=== PATIENT | male | born 1950 | race Caucasian/White ===

== ENCOUNTER 2016-07-08 09:14 | Outpatient (CLI) | payer MEDICARE | END 2016-07-08 09:15 | disposition home or self-care (01) | DX: Z00.00 Encounter for general adult medical examination without abnormal findings (principal); R73.01 Impaired fasting glucose; E66.9 Obesity, unspecified; I10 Essential (primary) hypertension ==

== ENCOUNTER 2017-02-24 09:55 | Outpatient (CLI) | payer MEDICARE | END 2017-02-24 09:56 | disposition critical access hospital (66) | LOC: EMS 09:55 | PROVIDERS: ATTEND Surgery | DX: R41.0 Disorientation, unspecified (principal) | CPT/HCPCS: A0425; A0429 ==

== ENCOUNTER 2017-02-24 10:23 | Inpatient (IN) | payer MEDICARE ==
[2017-02-24] MEDS ORDERED: SODIUM CHLORIDE 0.9% 1,000 ML IV ONE ×3 (10:50→12:50)
[2017-02-24 11:11] LABS: VBG BASE EXCESS -9.2 mmol/L (-2 - +2); VBG PH 7.265 (7.31-7.41)
[2017-02-24 11:13] LABS: NEUTROPHILS # (AUTO) 13.4 10^3/uL (1.5-6.6)
[2017-02-24 11:17] LABS: BASOPHILS # (AUTO) 0.1 10^3/uL (0.0-0.1); BASOPHILS % (AUTO) 0.3 %; EOSINOPHILS % (AUTO) 0.3 %; HCT - HEMATOCRIT 61.3 % (42.0-52.0); HGB - HEMOGLOBIN 19.1 g/dL (14.0-18.0); LYMPHOCYTES # (AUTO) 1.2 10^3/uL (1.5-3.5); LYMPHOCYTES % (AUTO) 7.6 %; MEAN CORPUSCULAR HEMOGLOBIN 30.5 pg (27.0-31.0); MEAN CORPUSCULAR HGB CONC 31.2 g/dL (32.0-36.0); MEAN CORPUSCULAR VOLUME 97.9 fL (80.0-94.0); MEAN PLATELET VOLUME 8.3 fL (7.4-11.4); MONOCYTES # (AUTO) 0.9 10^3/uL (0.0-1.0); MONOCYTES % (AUTO) 5.7 %; NEUTROPHILS % (AUTO) 86.1 %; RED BLOOD COUNT 6.26 10^6/uL (4.70-6.10); RED CELL DISTRIBUTION WIDTH 15.1 % (12.0-15.0); UNCORRECTED WHITE BLOOD COUNT 15.6 x10^3/uL; WHITE BLOOD COUNT 15.6 x10^3/uL (4.8-10.8)
[2017-02-24 11:20] LABS: INR 1.1 (0.8-1.2); PT - PROTHROMBIN TIME 12.6 secs (9.9-12.6)
[2017-02-24 11:27] LABS: PARTIAL THROMBOPLASTIN TIME 22.1 secs (24.9-33.3)
[2017-02-24 11:28] LABS: BILIRUBIN,URINE NEGATIVE (NEGATIVE)
[2017-02-24 11:29] LABS: UA w/ MICROSCOPIC CHARGE YES
[2017-02-24 11:35] LABS: UR CULTURE IF IND NOT INDICATED; WBC,URINE 0-3 /HPF (0-3)
[2017-02-24] MEDS ORDERED: IOPAMIDOL-300 100 ML VIAL ONE (11:47)
--- NOTE | 2017-02-24 12:18 | XRAY Preliminary Report ---
Exam: XR CHEST 1 VIEW IMPRESSION: Volume loss with small atelectasis in the left base. [facility] SITE ID: [id number]
--- NOTE | 2017-02-24 12:20 | XRAY Report ---
EXAM: CHEST RADIOGRAPHY EXAM DATE: 02/24/2017 11:45 AM. CLINICAL HISTORY: Altered mental status COMPARISON: None. TECHNIQUE: 1 view. FINDINGS: Lungs/Pleura: Some mild volume loss in the left base with some atelectasis. Otherwise lungs are clear . No effusions or pneumothoraces. Mediastinum: Within exam limitations, the cardiomediastinal contour is normal. Other: None. IMPRESSION: Volume loss with small atelectasis in the left base. [facility] Referring Provider Line: [phone] SITE ID: [id number]
[2017-02-24] MEDS ORDERED: INSULIN REGULAR HUMAN 100 UNIT in SODIUM CHLORIDE 0.9% 100ML 99 ML IV STA (12:28)
[2017-02-24 12:46] LABS: ALBUMIN/GLOBULIN RATIO 1.2 (1.0-2.2); BILIRUBIN,TOTAL 1.4 mg/dL (0.2-1.0); CALCIUM 10.5 mg/dL (8.5-10.3); CARBON DIOXIDE - CO2 16 mmol/L (21-32); CHLORIDE 96 mmol/L (101-111); CREATININE 3.2 mg/dL (0.6-1.2); GFR - MDRD 19 (>89); LIPASE 66 U/L (22-51); PHOSPHORUS 7.9 mg/dL (2.5-4.6); SODIUM 142 mmol/L (135-145); TOTAL PROTEIN 8.6 g/dL (6.7-8.2)
[2017-02-24 12:47] LABS: GLUCOSE 1220 mg/dL (70-100); POTASSIUM 6.4 mmol/L (3.5-5.0)
[2017-02-24 12:48] LABS: BUN - BLOOD UREA NITROGEN 89 mg/dL (6-20)
--- NOTE | 2017-02-24 12:54 | ED Physician Documentation ---
History of Present Illness - Stated complaint Stated Complaint: HIGH BLOOD SUGAR - Chief complaint Chief Complaint: Neuro - History obtained from History obtained from: Family ( states that last friday the pt started drinking an excessive amount of fluids (milk, water and juice) states no ETOH. she states that he started to then urinate "a bunch". this AM she states that he bacame weak and altered. She called EMS who reports that the BGL was "too high" to read. No hx of DM. Pt denies any symptoms.) Review of Systems Unable to obtain: Confused, Other (ROS provided somewhat from .) Ten Systems: 10 systems reviewed and negative Constitutional: reports: Fatigue. denies: Fever, Chills Eyes: denies: Loss of vision, Discharge Nose: denies: Congestion Throat: denies: Sore throat Cardiac: denies: Chest pain / pressure, Palpitations, Pedal edema Respiratory: denies: Dyspnea, Cough, Hemoptysis, Wheezing GI: denies: Abdominal Pain, Nausea, Vomiting, Constipation, Diarrhea : reports: Frequency. denies: Hesitancy, Unable to Void, Incontinent, Hematuria Skin: denies: Rash, Lesions Musculoskeletal: denies: Back pain, Extremity pain, Joint pain Neurologic: reports: Generalized weakness, Altered mental status. denies: Focal weakness, Difficulty speaking, Syncope, Seizure, Headache, Head injury, LOC PD PAST MEDICAL HISTORY - Past Medical History Cardiovascular: Hypertension, High cholesterol - Past Surgical History Other past surgical history: ORIF right arm - Present Medications Home Medications: Ambulatory Orders Medication Instructions Recorded Confirmed Pravastatin [Pravachol] 40 mg PO QPM 02/24/17 02/24/17 - Allergies Allergies/Adverse Reactions: Allergies Allergy/AdvReac Type Severity Reaction Status Date / Time No Known Drug Allergies Allergy Verified 02/24/17 10:32 - Living Situation Living Situation: reports: With spouse/s.o. - Social History Does the pt smoke?: No Smoking Status: Former smoker ETOH Use: Beer - Family History Family history: reports: Non contributory - POLST Patient has POLST: No PD ED PE NORMAL - Vitals Vital signs reviewed: Yes - General General: Other (mild distress) - HEENT HEENT: Pharynx benign. No: Moist mucous membranes - Neck Neck: No JVD - Cardiac Cardiac: No murmur. No: RRR (tachycardic but regular) - Respiratory Respiratory: No: No respiratory distress - Abdomen Abdomen: Soft, Other (diffuse tender abd exam. has umbilical hernia that states is not new) - Derm Derm: Normal color, No rash - Extremities Extremities: No edema - Neuro Neuro: Other (pt does know is name, does not know location or situation or year. will follow commands. has no specific weakness ) Eye Opening: Spontaneous Motor: Obeys Commands Verbal: Confused GCS Score: 14 - Psych Psych: Normal affect Results - Vitals Vitals: Vital Signs - 24 hr 02/24/17 02/24/17 02/24/17 10:23 11:30 13:34 Temperature 35.3 C L 35.8 C L Heart Rate 53 L 104 H 107 H Respiratory 18 18 22 Rate Blood Pressure 110/96 H 126/70 126/87 H O2 Saturation 87 L 95 97 Oxygen O2 Source Nasal cannula - EKG (time done) 1116 Rate: Rate (enter#) Rhythm: Sinus tachycardia Rico: Normal Intervals: Normal RI, QRS normal. No: Prolonged QT QRS: Normal Ischemia: Normal ST segments - Labs Labs: Laboratory Tests 02/24/17 02/24/17 02/24/17 10:45 10:45 10:45 WBC 15.6 H RBC 6.26 H Hgb 19.1 H Hct 61.3 H MCV 97.9 H MCH 30.5 MCHC 31.2 L RDW 15.1 H Plt Count 262 MPV 8.3 Neut # 13.4 H Lymph # 1.2 L Faulkner # 0.9 Eos # 0.0 Baso # 0.1 Absolute Nucleated RBC 0.00 Nucleated RBC % 0.0 PT INR APTT VBG pH VBG pCO2 VBG pO2 VBG HCO3 VBG Total CO2 VBG O2 Saturation VBG Base Excess Sodium 142 Potassium 6.4 H* Chloride 96 L Carbon Dioxide 16 L Anion Gap 30.0 H BUN 89 H* Creatinine 3.2 H Estimated GFR (MDRD) 19 L Glucose 1220 H* Lactic Acid Calcium 10.5 H Phosphorus 7.9 H Magnesium 4.0 H Total Bilirubin 1.4 H AST 128 H ALT 111 H Alkaline Phosphatase 122 H Total Creatine Kinase 4924 H* Troponin I 0.05 Total Protein 8.6 H Albumin 4.7 Globulin 3.9 Albumin/Globulin Ratio 1.2 Lipase 66 H Urine Color Urine Clarity Urine pH Ur Specific Harrington Urine Protein Urine Glucose (UA) Urine Ketones Urine Occult Blood Urine Nitrite Urine Bilirubin Urine Urobilinogen Ur Leukocyte Esterase Urine RBC Urine WBC Ur Squamous Epith Cells Urine Bacteria Ur Microscopic Review Urine Culture Comments Serum Ketones SMALL H 02/24/17 02/24/17 02/24/17 10:45 10:45 11:10 WBC RBC Hgb Hct MCV MCH MCHC RDW Plt Count MPV Neut # Lymph # Faulkner # Eos # Baso # Absolute Nucleated RBC Nucleated RBC % PT 12.6 INR 1.1 APTT 22.1 L VBG pH 7.265 L VBG pCO2 38.0 L VBG pO2 49.5 H VBG HCO3 16.9 L VBG Total CO2 18.0 L VBG O2 Saturation 82.0 H VBG Base Excess -9.2 L Sodium Potassium Chloride Carbon Dioxide Anion Gap BUN Creatinine Estimated GFR (MDRD) Glucose Lactic Acid Calcium Phosphorus Magnesium Total Bilirubin AST ALT Alkaline Phosphatase Total Creatine Kinase Troponin I Total Protein Albumin Globulin Albumin/Globulin Ratio Lipase Urine Color YELLOW Urine Clarity CLEAR Urine pH 6.0 Ur Specific Harrington 1.010 Urine Protein NEGATIVE Urine Glucose (UA) >=1000 H Urine Ketones TRACE Urine Occult Blood LARGE H Urine Nitrite NEGATIVE Urine Bilirubin NEGATIVE Urine Urobilinogen 0.2 (NORMAL) Ur Leukocyte Esterase NEGATIVE Urine RBC 0-5 Urine WBC 0-3 Ur Squamous Epith Cells RARE Squamous Urine Bacteria Rare Ur Microscopic Review INDICATED Urine Culture Comments NOT INDICATED Serum Ketones 02/24/17 11:16 WBC RBC Hgb Hct MCV MCH MCHC RDW Plt Count MPV Neut # Lymph # Faulkner # Eos # Baso # Absolute Nucleated RBC Nucleated RBC % PT INR APTT VBG pH VBG pCO2 VBG pO2 VBG HCO3 VBG Total CO2 VBG O2 Saturation VBG Base Excess Sodium Potassium Chloride Carbon Dioxide Anion Gap BUN Creatinine Estimated GFR (MDRD) Glucose Lactic Acid 3.9 H* Calcium Phosphorus Magnesium Total Bilirubin AST ALT Alkaline Phosphatase Total Creatine Kinase Troponin I Total Protein Albumin Globulin Albumin/Globulin Ratio Lipase Urine Color Urine Clarity Urine pH Ur Specific [place] Urine Protein Urine Glucose (UA) Urine Ketones Urine Occult Blood Urine Nitrite Urine Bilirubin Urine Urobilinogen Ur Leukocyte Esterase Urine RBC Urine WBC Ur Squamous Epith Cells Urine Bacteria Ur Microscopic Review Urine Culture Comments Serum Ketones - Rads (name of study) CXR Radiology: Final report received Head CT Radiology: Final report received ABD pelvis Radiology: Final report received (1. Study limited by patient motion. 2.6.4 cm indeterminate cystic lesion superior pole right kidney. 3. Colonic diverticulosis. 4. 4 x 6 cm non-entrapped fat-filled umbilical hernia. 5. Linear stranding surrounding the pancreatic tail. Differential is between early mild pancreatitis versus residual from prior episode of pancreatitis. . Normal appendix.7. 4.4 cm infrarenal abdominal aortic aneurysm. ) PD MEDICAL DECISION MAKING - ED course Complexity details: d/w patient ED course: Pt in DKA and dehydrated. anion gap of 30 with acidosis. Potassium elevated. Started in insulin. ABX ordered to cover any sepsis, Has slightly elevated trop but ECG does not show STEMI. CT abd/pelivs positive only for possible pancreatitis but Lipase only in the 60's. unsure of the etiology of his DKA. ASA ordered for his elevated trop. Discussed case with Dr Null (internal medicine ) who will admit. - Critical Care Time(min): 70 Time Includes: Direct patient care, Reassess patient, Document care, Coordinate care, Medical consult, See progress note Data interpretation: Labs, ABG, CXR, See progress note Procedures included in critical care time: See progress note Procedures excluded from critical care time: See progress note Departure - Departure Disposition: 66 [facility] DC/Xfer Clinical Impression: DKA (diabetic ketoacidoses), Dehydration, Hyperkalemia, Altered mental status
[2017-02-24] MEDS ORDERED: VANCOMYCIN INJ 1 GM in SODIUM CHLORIDE 0.9% 250 ML IV STA (13:04)
[2017-02-24] MEDS ORDERED: PIPERACILLIN/TAZOBACTAM 3.375 GM in SODIUM CHLORIDE 0.9% MINIBAG 100 ML IV STA (13:04)
--- NOTE | 2017-02-24 13:35 | CT Preliminary Report ---
Exam: CT HEAD W/O IMPRESSION: Generalized age-related cortical atrophic changes without evidence of acute intracranial abnormality. [facility] SITE ID: [id number]
--- NOTE | 2017-02-24 13:52 | CT Preliminary Report ---
Exam: CT ABDOMEN/PELVIS W/O IMPRESSION: 1. Study limited by patient motion. 2. 6.4 cm indeterminate cystic lesion superior pole right kidney. 3. Colonic diverticulosis. 4. 4 x 6 cm non-entrapped fat filled umbilical hernia. 5. Linear stranding surrounding the pancreatic tail. Differential is between early mild pancreatitis versus residual from prior episode of pancreatitis. 6. Normal appendix. 7. 4.4 cm infrarenal abdominal aortic aneurysm. [facility] SITE ID: [id number]
--- NOTE | 2017-02-24 13:55 | CT Report ---
EXAM: CT HEAD EXAM DATE: 02/24/2017 01:07 PM. CLINICAL HISTORY: Altered mental status. Unconscious. Abdominal pain with an umbilical hernia. COMPARISON: None. TECHNIQUE: Multiaxial CT images were obtained from the foramen magnum to the vertex. Reformats: Coron al. IV contrast: None. In accordance with CT protocol optimization, one or more of the following dose reduction techniques w ere utilized for this exam: automated exposure control, adjustment of mA and/or KV based on patient s ize, or use of iterative reconstructive technique. FINDINGS: Parenchyma: No intraparenchymal hemorrhage. No evidence of mass, midline shift, or CT findings of acu te infarction. Bergman-white differentiation is distinct. Diffuse chronic microangiopathic white matter changes are evident. Extraaxial Spaces: Normal for age. No subdural or epidural collections identified. Ventricles: The ventricles and cortical sulci are enlarged, consistent with age-related tissue loss. Sinuses and orbits: Imaged paranasal sinuses, orbits, and mastoids show no significant abnormality. Bones: No evidence of fracture or calvarial defect. Other: None. IMPRESSION: Generalized age-related cortical atrophic changes without evidence of acute intracranial abnormality. [facility] Referring Provider Line: [phone] SITE ID: [id number]
--- NOTE | 2017-02-24 13:58 | CT Report ---
EXAM: CT ABDOMEN AND PELVIS EXAM DATE: 02/24/2017 01:25 PM. CLINICAL HISTORY: Abdominal pain with umbilical hernia. Patient is unconscious. COMPARISONS: None. TECHNIQUE: Routine helical CT imaging was performed through the abdomen and pelvis. IV contrast: None . Enteric contrast: No. Reconstructions: Coronal and sagittal. In accordance with CT protocol optimization, one or more of the following dose reduction techniques w ere utilized for this exam: automated exposure control, adjustment of mA and/or KV based on patient s ize, or use of iterative reconstructive technique. FINDINGS: Study compromised by this gentleman's inability to hold his breath such that there is respiratory mot ion throughout the exam. Lung Bases: Unremarkable. Liver: Fatty liver. Grossly negative. Gallbladder/Bile Ducts: Several tiny gallstones. No biliary duct dilatation. Gallbladder is of normal caliber. Spleen: Normal. Pancreas: Small amount of linear stranding surrounding the pancreatic tail. Pancreas otherwise unrema rkable. Adrenal Glands: Normal. Kidneys: Normal left kidney. 6.4 cm indeterminate lesion superior pole right kidney. Breathing artifact precludes adequate measure ment of internal density. Peritoneal Cavity/Bowel: Diverticuli off the colon. 6 x 4 cm fat-filled non-entrapped umbilical hernia. No free fluid, free air or adenopathy. No masses or acute inflammatory process. The appendix is well visualized and normal. Pelvic Organs: Normal. The bladder and visualized pelvic organs are within normal limits. Vasculature: 4.4 cm infrarenal abdominal aortic aneurysm over a 4 cm segment. Bones: Scoliosis. Other: None. IMPRESSION: 1. Study limited by patient motion. 2.6.4 cm indeterminate cystic lesion superior pole right kidney. 3. Colonic diverticulosis. 4. 4 x 6 cm non-entrapped fat-filled umbilical hernia. 5. Linear stranding surrounding the pancreatic tail. Differential is between early mild pancreatitis versus residual from prior episode of pancreatitis. 6. Normal appendix. 7. 4.4 cm infrarenal abdominal aortic aneurysm. [facility] Referring Provider Line: [phone] SITE ID: [id number]
[2017-02-24] MEDS ORDERED: ASPIRIN CHEW 81 MG TABLET PO STA (14:16)
[2017-02-24] MEDS ORDERED: VANCOMYCIN 1 GM VIAL ONE (14:18)
[2017-02-24] MEDS ORDERED: PROCHLORPERAZINE 10 MG/2 ML VIAL IVP PRN (14:41)
[2017-02-24] MEDS ORDERED: ACETAMINOPHEN 325 MG TABLET PO PRN (14:41)
[2017-02-24] MEDS ORDERED: SODIUM CHLORIDE FLUSH 0.9% 10 ML SYRINGE IVP PRN (14:41)
[2017-02-24] MEDS ORDERED: HYDROcod/ACETAM 10 MG/325 MG TABLET PO PRN (14:41)
[2017-02-24] MEDS ORDERED: ASPIRIN CHEW 81 MG TABLET ONE (14:45)
[2017-02-24 15:01] LABS: CALCIUM 9.2 mg/dL (8.5-10.3); CREATININE 3.1 mg/dL (0.6-1.2)
[2017-02-24 15:37] LABS: HEMOGLOBIN A1C 2.71 g/dL
[2017-02-24 16:22] LABS: CALCIUM 9.6 mg/dL (8.5-10.3); CREATININE 3.1 mg/dL (0.6-1.2); POTASSIUM 4.9 mmol/L (3.5-5.0)
[2017-02-24 17:22] LABS: VBG BASE EXCESS -7.3 mmol/L (-2 - +2); VBG OXYGEN SATURATION 81.4 % (60-80); VBG PH 7.285 (7.31-7.41); VBG TOTAL CO2 20.1 mmol/L (24-29)
[2017-02-24 17:29] LABS: BUN - BLOOD UREA NITROGEN 87 mg/dL (6-20); CALCIUM 9.8 mg/dL (8.5-10.3); CARBON DIOXIDE - CO2 18 mmol/L (21-32); CHLORIDE 110 mmol/L (101-111); CREATININE 3.1 mg/dL (0.6-1.2); GFR - MDRD 20 (>89); GLUCOSE 827 mg/dL (70-100); MAGNESIUM 3.7 mg/dL (1.7-2.8); SODIUM 147 mmol/L (135-145)
--- NOTE | 2017-02-24 18:23 | HISTORY & PHYSICAL EXAMINATION ---
Chief Complaint - Chief Complaint Chief Complaint: Altered mental status, brought in by . <Yessica Reid - Last Filed: 02/27/17 18:01> History of Present Illness <Bhavani Cottrell - Last Filed: 02/27/17 10:31> - Admitted From Admitted From:: ED - History Obtained From Records Reviewed: Yes History obtained from: Pt and ED MD Exam Limitations: Pt somnolent and doses off to sleep during speaking <Yessica Reid - Last Filed: 02/27/17 18:01> - History of Present Illness HPI Comment/Other: This is a 67-year-old white male with a history of hypertension and hyperlipidemia only on a cholesterol medication. Patient presented with a 5 day history of weakness, lethargy, poor p.o. intake, thirst and finally significant altered mental status. The could not awaken him today and she brought him to the emergency room. He was found to be in DKA and a diabetic coma. Insulin and fluids and empiric antibiotics were begun in the ED. He is being transferred to the ICU for management of DKA and new onset of diabetes. (Yessica Reid) History - Past Medical History Cardiovascular: reports: Hypertension, High cholesterol Respiratory: reports: None Neuro: reports: None Endocrine/Autoimmune: reports: None GI: reports: None : reports: None HEENT: reports: Chronic vision loss Psych: reports: None Musculoskeletal: reports: Chronic back pain Derm: reports: None - Past Surgical History Other past surgical history: ORIF right arm - Family & Social History Living Situation: With spouse/s.o. - POLST Patient has POLST: No <Yessica Reid - Last Filed: 02/27/17 18:01> Meds/Allgy <Bhavani Cottrell - Last Filed: 02/27/17 10:31> <Yessica Reid - Last Filed: 02/27/17 18:01> - Home Medications Home Medications: Ambulatory Orders Medication Instructions Recorded Confirmed Pravastatin [Pravachol] 40 mg PO QPM 02/24/17 02/24/17 - Allergies Allergies/Adverse Reactions: Allergies Allergy/AdvReac Type Severity Reaction Status Date / Time No Known Drug Allergies Allergy Verified 02/24/17 10:32 Review of Systems - Constitutional Constitutional: reports: Fatigue, Weakness, Other (Thirst) - Gastrointestinal Gastrointestinal: reports: Abdominal pain <Yessica Reid - Last Filed: 02/27/17 18:01> Exam - Vital Signs Reviewed Vital Signs: Yes - Physical Exam General Appearance: positive: Lethargic, Other (Awakens to name.) Eyes Bilateral: positive: No scleral icterus ENT: positive: ENT inspection nml Neck: positive: No JVD Respiratory: positive: No respiratory distress, Other (R base rales.) Cardiovascular: positive: Regular rate & rhythm, No murmur Peripheral Pulses: positive: 1+ Abdomen: positive: No distention, Tenderness, Other (Decreased bowel sounds) Skin: positive: Color nml Extremities: positive: No pedal edema Neurologic/Psychiatric: positive: Weakness, Other (Lethargic, awakens and answers briefly) <Yessica Reid - Last Filed: 02/27/17 18:01> - Vital Signs Vital Signs: Vital Signs x48h Temp Pulse Resp BP Pulse Ox 02/27/17 07:27 37.5 C 87 18 106/68 94 Conclusion/Plan - Problem List (2) Uncontrolled type 2 diabetes mellitus QualifierTitle: Diabetes mellitus complication status: with oral complications - Lab Results Fish Bones: 02/25/17 03:10 02/27/17 05:46 <Bhavani Cottrell - Last Filed: 02/27/17 10:31> - Problem List (1) DKA (diabetic ketoacidoses) Conclusion/Plan: Altered mental status is likely due to DKA. Place the Pt in ICU. Start iv fluids at rapid rate. Start iv Insulin per DKA protocol with frequent monitoring of glu, anion gap and electrolytes. (2) Dehydration Conclusion/Plan: Pt seem clinically dry His BUN/creat and very hemoconcentrated Hgb/Hct suggest longstanding volume depletion causing significant prerenal azotemia. Plan iv hydration with crystalloids. (3) Hyperkalemia Conclusion/Plan: Likely secondary to hyperglycemia and ARF. As glucose drops, K should decrease, with Insulin drip. Continue iv hydration with saline. Follow labs and if needed, Kayexelate would be ordered. (4) Rhabdomyolysis Conclusion/Plan: Significant elevation of CPK without Troponin elevation suggests rhabdomyolysis. CPK elevation could be partly due to renal failure as well. I asked Pt of he had any trauma or injury, as he awoke briefly, and he answered "No". His family did report poor po intake as he became lethargic, therefore the time course of these elevated values is not yet known. Continue iv fluids at rapid rate for clearing CPK as well as for DKA treatment. (5) Abdominal pain Conclusion/Plan: Abnormal CT abdomen suggests pancreatic pathology which may be cause of abdominal pain, and cause of DKA as well as new DM diagnosis. Will follow abdominal exam and may need surgical consult if pain and exam worsens. Qualifiers: Abdominal location: generalized Qualified Code(s): R10.84 - Generalized abdominal pain - Lab Results Fish Bones: 02/25/17 03:10 02/27/17 05:46 <Yessica Reid - Last Filed: 02/27/17 18:01> Issues/Core Measures - Anticipated LOS Anticipated Stay Length: 2 or more midnights - [facility] [place] Requirement for [facility] I expect patient to be DC'd or transferred within 96 hours.: Yes - DVT/VTE - Prophylaxis VTE/DVT Device ordered at admit?: Yes <Bhavani Cottrell - Last Filed: 02/27/17 10:31>
[2017-02-24 18:39] LABS: BUN - BLOOD UREA NITROGEN 85 mg/dL (6-20); CALCIUM 9.7 mg/dL (8.5-10.3); CARBON DIOXIDE - CO2 19 mmol/L (21-32); CHLORIDE 116 mmol/L (101-111); CREATININE 2.8 mg/dL (0.6-1.2); GFR - MDRD 23 (>89); GLUCOSE 620 mg/dL (70-100); MAGNESIUM 3.5 mg/dL (1.7-2.8); POTASSIUM 4.5 mmol/L (3.5-5.0); SODIUM 150 mmol/L (135-145)
[2017-02-24] MEDS: SODIUM CHLORIDE 0.9% 1,000 ML IV SCH ×2 (18:44→23:54)
[2017-02-24] MEDS ORDERED: INSULIN REGULAR HUMAN 100 UNIT in SODIUM CHLORIDE 0.9% 100ML 99 ML IV SCH (20:10)
--- NOTE | 2017-02-24 20:29 | PROVIDER PROGRESS NOTE ---
Lozenge Dough Mixer Note - Lozenge Dough Mixer Note Lozenge Dough Mixer Note: This is a 67-year-old white male with a history of hypertension and hyperlipidemia only on a cholesterol medication. Patient presented with a 5 day history of weakness, lethargy, poor p.o. intake, thirst and finally significant altered mental status. The could not awaken him today and she brought him to the emergency room. He was found to be in DKA and a diabetic coma. Insulin and fluids and empiric antibiotics were begun in the ED. He is being transferred to the ICU for management of DKA and new onset of diabetes. Upon review of orders patient had a consult for General Surgery. I spoke to Dr Cox in regard to the non-incarcerated hernia and pancreatitis and it seems to be a non-urgent surgical evaluation. We both agreed that general surgery consultation is not warranted at the present time due to DKA and somnolence of patient that would prevent a good history and physical exam. May explore this option once out of ICU or DKA resolution which may be associated with patient's acute pancreatitis and abdominal pain, DHRUV, and electrolyte disturbance.
[2017-02-24] MEDS: PANTOPRAZOLE 40 MG VIAL IVP SCH (21:10)
[2017-02-24] MEDS: SODIUM CHLORIDE FLUSH 0.9% 10 ML SYRINGE IVP SCH (21:10)
[2017-02-24] MEDS: HEPARIN 5,000 UNIT/ML VIAL SUBQ SCH (21:15)
[2017-02-24] MEDS ORDERED: MAGNESIUM SULFATE 2 GRAM 2 GM/50 ML BAG IV PRN (21:50)
[2017-02-24 21:55] LABS: GLUCOSE 508 mg/dL (70-100)
[2017-02-24 22:52] LABS: GLUCOSE 413 mg/dL (70-100)
[2017-02-24] MEDS ORDERED: NYSTATIN CREAM 15 GM TUBE TOP SCH (23:00)
[2017-02-25] MEDS ORDERED: INSULIN GLARGINE 300 UNIT/3 ML PEN SUBQ SCH ×3 (00:04→16:49)
[2017-02-25] MEDS: INSULIN REGULAR HUMAN 100 UNIT in SODIUM CHLORIDE 0.9% 100ML 99 ML IV SCH ×3 (00:10→16:52)
[2017-02-25 01:04] LABS: GLUCOSE 360 mg/dL (70-100)
[2017-02-25 03:25] LABS: BASOPHILS % (AUTO) 0.4 %; EOSINOPHILS # (AUTO) 0.2 10^3/uL (0.0-0.7); EOSINOPHILS % (AUTO) 1.9 %; HCT - HEMATOCRIT 52.3 % (42.0-52.0); HGB - HEMOGLOBIN 17.7 g/dL (14.0-18.0); LYMPHOCYTES # (AUTO) 1.5 10^3/uL (1.5-3.5); MEAN CORPUSCULAR HEMOGLOBIN 30.5 pg (27.0-31.0); MEAN CORPUSCULAR HGB CONC 33.9 g/dL (32.0-36.0); MEAN PLATELET VOLUME 7.6 fL (7.4-11.4); NEUTROPHILS # (AUTO) 9.7 10^3/uL (1.5-6.6); NEUTROPHILS % (AUTO) 77.7 %; NUCLEATED RED BLOOD CELLS AUTO 0.1 /100WBC; RED BLOOD COUNT 5.82 10^6/uL (4.70-6.10); RED CELL DISTRIBUTION WIDTH 13.7 % (12.0-15.0); UNCORRECTED WHITE BLOOD COUNT 12.5 x10^3/uL; WHITE BLOOD COUNT 12.5 x10^3/uL (4.8-10.8)
[2017-02-25] MEDS ORDERED: D5.45NS W/20 MEQ KCL 1,000 ML IV SCH (04:04)
[2017-02-25] MEDS ORDERED: MAGNESIUM SULFATE 2 GRAM 2 GM/50 ML BAG IV ONE (04:09)
[2017-02-25] MEDS: D5.45NS W/20 MEQ KCL 1,000 ML IV SCH ×3 (04:36→19:07)
[2017-02-25] MEDS: SODIUM CHLORIDE 0.9% 1,000 ML IV SCH (04:41)
[2017-02-25] MEDS ORDERED: MAGNESIUM SULFATE 2 GRAM 50 ML IV SCH (05:00)
[2017-02-25] MEDS ORDERED: POTASSIUM CHLOR 10 MEQ/100 ML 100 ML IV SCH ×2 (05:00)
[2017-02-25 05:59] LABS: ALBUMIN/GLOBULIN RATIO 1.1 (1.0-2.2); BILIRUBIN,TOTAL 0.9 mg/dL (0.2-1.0); CALCIUM 9.3 mg/dL (8.5-10.3); CREATININE 2.4 mg/dL (0.6-1.2); MAGNESIUM 3.3 mg/dL (1.7-2.8); PHOSPHORUS 3.2 mg/dL (2.5-4.6); POTASSIUM 4.2 mmol/L (3.5-5.0); TOTAL PROTEIN 7.3 g/dL (6.7-8.2)
[2017-02-25 06:18] LABS: LIPASE 38 U/L (22-51)
[2017-02-25 06:19] LABS: AMYLASE 1448 U/L (28-100)
[2017-02-25] MEDS: SODIUM CHLORIDE FLUSH 0.9% 10 ML SYRINGE IVP SCH ×3 (06:40→21:43)
[2017-02-25] MEDS ORDERED: POTASSIUM CHLORIDE 20 MEQ/15 ML UDC PO PRN (07:00)
[2017-02-25] MEDS: INSULIN ASPART 300 UNIT/3 ML PEN SUBQ SCH ×4 (08:44→21:43)
[2017-02-25] MEDS: HEPARIN 5,000 UNIT/ML VIAL SUBQ SCH ×2 (09:49→21:44)
[2017-02-25] MEDS: PANTOPRAZOLE 40 MG VIAL IVP SCH ×2 (10:37→21:43)
[2017-02-25] MEDS ORDERED: INSULIN ASPART 300 UNIT/3 ML PEN SUBQ SCH ×2 (11:54→16:49)
--- NOTE | 2017-02-25 16:58 | PROVIDER PROGRESS NOTE ---
Subjective - Prog Note Date Prog Note Date: 02/25/17 Prog Note Time: 16:54 - Subjective Pt reports feeling: Improved Subjective: and he both state that he is waking up. He still having problems finding his words and sometimes looks at her to speak form. She replies "do not look at me, you answer her". He denies chest pain, palpitations. Abdomen does not hurt. However he has frequent urination, and it julien at the tip of his penis when urine comes out. Denies bladder spasm, hematuria or flank pain. He has been going to the bathroom a lot his reports and that has been going on for days. He has spent quite a bit of time not walking and laying down. Current Medications - Current Medications Current Medications: Active Medications Acetaminophen (Tylenol) 650 mg PO Q4HR PRN PRN Reason: Pain 1 to 4 Acetaminophen/Hydrocodone Bitart ([place] 10 Mg/325 Mg) 1 tab PO Q4HR PRN PRN Reason: Pain 8 to 10 Heparin Sodium (Porcine) () 5,000 unit SUBQ BID [facility] Last Admin: 02/25/17 09:49 Dose: 5,000 unit Insulin Human Regular 100 unit (/ Sodium Chloride) 100 mls @ 15 mls/hr IV .Q6H40M [facility]; 15 UNIT/HR PRN Reason: Protocol Last Titration: 02/25/17 08:30 Dose: 0 unit/hr, 0 mls/hr Potassium Chloride/Dextrose/Sod Cl (D5.45ns W/20 Meq Kcl) 1,000 mls @ 150 mls/ hr IV .Q6H40M [facility] Last Admin: 02/25/17 11:48 Dose: 150 mls/hr Insulin Aspart (Novolog) 1 - 9 unit SUBQ 0800,1200,1700,2100 [facility] PRN Reason: Protocol Last Admin: 02/25/17 12:04 Dose: Not Given Insulin Aspart (Novolog) 40 unit SUBQ ONCE [facility] Stop: 02/25/17 17:30 Insulin Glargine (Lantus Solostar) 30 unit SUBQ QDBREAKFAST [facility] Insulin Glargine (Lantus Solostar) 30 unit SUBQ QPM [facility] Pantoprazole Sodium (Protonix) 40 mg IVP BID [facility] Last Admin: 02/25/17 10:37 Dose: 40 mg Prochlorperazine Edisylate (Compazine Inj) 10 mg IVP Q6HR PRN PRN Reason: Nausea / Vomiting Sodium Chloride (Normal Saline Flush 0.9%) 10 ml IVP Q8HR [facility] Last Admin: 02/25/17 06:40 Dose: Not Given Sodium Chloride (Normal Saline Flush 0.9%) 10 ml IVP PRN PRN PRN Reason: NEEDED PER PROVIDER ORDERS Pravastatin [Pravachol] 40 mg PO QPM 02/24/17 Objective - Vital Signs/Intake & Output Reviewed Vital Signs: Yes Vital Signs: Vital Signs x48h Pulse Pulse Pulse Resp BP BP BP 02/25/17 16:06 102 H 19 100/58 L 02/25/17 14:06 104 H 24 129/75 02/25/17 12:58 110 H 26 H 130/77 02/25/17 12:30 117 H 110 H 130/77 174/94 H 02/25/17 12:08 104 H 23 155/108 H 02/25/17 11:12 102 H 20 02/25/17 10:32 103 H 25 H 114/78 02/25/17 09:15 107 H 23 121/59 L Pulse Ox 02/25/17 16:06 98 02/25/17 14:06 95 02/25/17 12:58 95 02/25/17 12:30 02/25/17 12:08 94 02/25/17 11:12 95 02/25/17 10:32 95 02/25/17 09:15 97 Intake & Output: Intake & Output 02/22/17 02/23/17 02/24/17 02/25/17 23:59 23:59 23:59 23:59 Intake Total 4043.051 3576.909 Output Total 750 1630 Balance 3293.051 1946.909 - Objective General Appearance: positive: No acute distress, Alert, Other (Tall, moderately overweight white gentleman who looks his stated age, speech is nasal, slightly slurred. I cannot tell if his false teeth are doing this or not.) Eyes Bilateral: positive: PERRL ENT: positive: Dry mucous membranes. negative: Oral lesions Neck: positive: No JVD. negative: Stiff neck, Carotid bruit Respiratory: positive: Chest non-tender. negative: Wheezes, Rales, Rhonchi Cardiovascular: positive: Regular rate & rhythm, Tachycardia, Systolic murmur. negative: Gallop/S4, Friction rub Abdomen: positive: Non-tender, No organomegaly, Nml bowel sounds, Other (large, orange sized umbilical hernia that is reducible. skin of abd is splotchy red and says that is nml for him. large large abd panus). negative: Guarding, Rebound Skin: positive: Warm, Dry, Other (scrotum is large and fluid filled, nontender. circumscised penis. no exudate. no balanitis. penus is hidden in folds of scrotum.) Extremities: positive: Full ROM, No pedal edema Neurologic/Psychiatric: positive: Oriented x3, CN's nml (2-12) (except deaf?), Motor nml (except weak.), Sensation nml, Slurred/abnml speech - Lab Results Fish Bones: 02/25/17 03:10 02/25/17 12:35 Other Labs: Lab Results x24hrs 02/25/17 02/25/17 02/25/17 Range/Units 12:35 09:23 09:23 WBC (4.8-10.8) x10^3/uL RBC (4.70-6.10) 10^6/uL Hgb (14.0-18.0) g/dL Hct (42.0-52.0) % MCV (80.0-94.0) fL MCH (27.0-31.0) pg MCHC (32.0-36.0) g/dL RDW (12.0-15.0) % Plt Count (130-450) 10^3/uL MPV (7.4-11.4) fL Neut # (1.5-6.6) 10^3/uL Lymph # (1.5-3.5) 10^3/uL Mcleod # (0.0-1.0) 10^3/uL Eos # (0.0-0.7) 10^3/uL Baso # (0.0-0.1) 10^3/uL Absolute Nucleated RBC x10^3/uL Nucleated RBC % /100WBC VBG pH (7.31-7.41) VBG pCO2 (41-51) mmHg VBG pO2 (25-47) mmHg VBG HCO3 (23-28) mmol/L VBG Total CO2 (24-29) mmol/L VBG O2 Saturation (60-80) % VBG Base Excess (-2 - +2) mmol/L Sodium 156 H* (135-145) mmol/L Potassium (3.5-5.0) mmol/L Chloride (101-111) mmol/L Carbon Dioxide (21-32) mmol/L Anion Gap (6-13) BUN (6-20) mg/dL Creatinine (0.6-1.2) mg/dL Estimated GFR (MDRD) (>89) Glucose (70-100) mg/dL Calcium (8.5-10.3) mg/dL Phosphorus (2.5-4.6) mg/dL Magnesium (1.7-2.8) mg/dL Total Bilirubin (0.2-1.0) mg/dL AST (10-42) IU/L ALT (10-60) IU/L Alkaline Phosphatase (42-121) IU/L Total Creatine Kinase 2452 H* (22-269) IU/L Troponin I 0.07 (<0.49) ng/mL Total Protein (6.7-8.2) g/dL Albumin (3.2-5.5) g/dL Globulin (2.1-4.2) g/dL Albumin/Globulin Ratio (1.0-2.2) Amylase (28-100) U/L Lipase (22-51) U/L Serum Ketones (NEGATIVE) 02/25/17 02/25/17 02/25/17 Range/Units 05:24 05:24 03:10 WBC 12.5 H (4.8-10.8) x10^3/uL RBC 5.82 (4.70-6.10) 10^6/uL Hgb 17.7 (14.0-18.0) g/dL Hct 52.3 H (42.0-52.0) % MCV 90.0 (80.0-94.0) fL MCH 30.5 (27.0-31.0) pg MCHC 33.9 (32.0-36.0) g/dL RDW 13.7 (12.0-15.0) % Plt Count 197 (130-450) 10^3/uL MPV 7.6 (7.4-11.4) fL Neut # 9.7 H (1.5-6.6) 10^3/uL Lymph # 1.5 (1.5-3.5) 10^3/uL Mcleod # 1.0 (0.0-1.0) 10^3/uL Eos # 0.2 (0.0-0.7) 10^3/uL Baso # 0.0 (0.0-0.1) 10^3/uL Absolute Nucleated RBC 0.01 x10^3/uL Nucleated RBC % 0.1 /100WBC VBG pH (7.31-7.41) VBG pCO2 (41-51) mmHg VBG pO2 (25-47) mmHg VBG HCO3 (23-28) mmol/L VBG Total CO2 (24-29) mmol/L VBG O2 Saturation (60-80) % VBG Base Excess (-2 - +2) mmol/L Sodium 160 H* (135-145) mmol/L Potassium 4.2 (3.5-5.0) mmol/L Chloride 130 H* (101-111) mmol/L Carbon Dioxide 21 (21-32) mmol/L Anion Gap 9.0 (6-13) BUN 83 H* (6-20) mg/dL Creatinine 2.4 H (0.6-1.2) mg/dL Estimated GFR (MDRD) 27 L (>89) Glucose 177 H (70-100) mg/dL Calcium 9.3 (8.5-10.3) mg/dL Phosphorus 3.2 (2.5-4.6) mg/dL Magnesium 3.3 H (1.7-2.8) mg/dL Total Bilirubin 0.9 (0.2-1.0) mg/dL AST 106 H (10-42) IU/L ALT 102 H (10-60) IU/L Alkaline Phosphatase 91 (42-121) IU/L Total Creatine Kinase (22-269) IU/L Troponin I (<0.49) ng/mL Total Protein 7.3 (6.7-8.2) g/dL Albumin 3.8 (3.2-5.5) g/dL Globulin 3.5 (2.1-4.2) g/dL Albumin/Globulin Ratio 1.1 (1.0-2.2) Amylase 1448 H* (28-100) U/L Lipase 38 (22-51) U/L Serum Ketones NEGATIVE (NEGATIVE) 02/25/17 02/25/17 02/25/17 Range/Units 03:10 03:10 00:48 WBC (4.8-10.8) x10^3/uL RBC (4.70-6.10) 10^6/uL Hgb (14.0-18.0) g/dL Hct (42.0-52.0) % MCV (80.0-94.0) fL MCH (27.0-31.0) pg MCHC (32.0-36.0) g/dL RDW (12.0-15.0) % Plt Count (130-450) 10^3/uL MPV (7.4-11.4) fL Neut # (1.5-6.6) 10^3/uL Lymph # (1.5-3.5) 10^3/uL Mcleod # (0.0-1.0) 10^3/uL Eos # (0.0-0.7) 10^3/uL Baso # (0.0-0.1) 10^3/uL Absolute Nucleated RBC x10^3/uL Nucleated RBC % /100WBC VBG pH (7.31-7.41) VBG pCO2 (41-51) mmHg VBG pO2 (25-47) mmHg VBG HCO3 (23-28) mmol/L VBG Total CO2 (24-29) mmol/L VBG O2 Saturation (60-80) % VBG Base Excess (-2 - +2) mmol/L Sodium (135-145) mmol/L Potassium (3.5-5.0) mmol/L Chloride (101-111) mmol/L Carbon Dioxide (21-32) mmol/L Anion Gap (6-13) BUN (6-20) mg/dL Creatinine (0.6-1.2) mg/dL Estimated GFR (MDRD) (>89) Glucose 360 H (70-100) mg/dL Calcium (8.5-10.3) mg/dL Phosphorus (2.5-4.6) mg/dL Magnesium (1.7-2.8) mg/dL Total Bilirubin (0.2-1.0) mg/dL AST (10-42) IU/L ALT (10-60) IU/L Alkaline Phosphatase (42-121) IU/L Total Creatine Kinase (22-269) IU/L Troponin I 0.07 (<0.49) ng/mL Total Protein (6.7-8.2) g/dL Albumin (3.2-5.5) g/dL Globulin (2.1-4.2) g/dL Albumin/Globulin Ratio (1.0-2.2) Amylase (28-100) U/L Lipase (22-51) U/L Serum Ketones SMALL H SMALL H (NEGATIVE) 02/24/17 02/24/17 02/24/17 Range/Units 22:36 21:09 21:09 WBC (4.8-10.8) x10^3/uL RBC (4.70-6.10) 10^6/uL Hgb (14.0-18.0) g/dL Hct (42.0-52.0) % MCV (80.0-94.0) fL MCH (27.0-31.0) pg MCHC (32.0-36.0) g/dL RDW (12.0-15.0) % Plt Count (130-450) 10^3/uL MPV (7.4-11.4) fL Neut # (1.5-6.6) 10^3/uL Lymph # (1.5-3.5) 10^3/uL Mcleod # (0.0-1.0) 10^3/uL Eos # (0.0-0.7) 10^3/uL Baso # (0.0-0.1) 10^3/uL Absolute Nucleated RBC x10^3/uL Nucleated RBC % /100WBC VBG pH (7.31-7.41) VBG pCO2 (41-51) mmHg VBG pO2 (25-47) mmHg VBG HCO3 (23-28) mmol/L VBG Total CO2 (24-29) mmol/L VBG O2 Saturation (60-80) % VBG Base Excess (-2 - +2) mmol/L Sodium (135-145) mmol/L Potassium (3.5-5.0) mmol/L Chloride (101-111) mmol/L Carbon Dioxide (21-32) mmol/L Anion Gap (6-13) BUN (6-20) mg/dL Creatinine (0.6-1.2) mg/dL Estimated GFR (MDRD) (>89) Glucose 413 H 508 H* (70-100) mg/dL Calcium (8.5-10.3) mg/dL Phosphorus (2.5-4.6) mg/dL Magnesium (1.7-2.8) mg/dL Total Bilirubin (0.2-1.0) mg/dL AST (10-42) IU/L ALT (10-60) IU/L Alkaline Phosphatase (42-121) IU/L Total Creatine Kinase (22-269) IU/L Troponin I 0.06 (<0.49) ng/mL Total Protein (6.7-8.2) g/dL Albumin (3.2-5.5) g/dL Globulin (2.1-4.2) g/dL Albumin/Globulin Ratio (1.0-2.2) Amylase (28-100) U/L Lipase (22-51) U/L Serum Ketones SMALL H SMALL H (NEGATIVE) 02/24/17 02/24/17 02/24/17 Range/Units 18:19 17:10 17:10 WBC (4.8-10.8) x10^3/uL RBC (4.70-6.10) 10^6/uL Hgb (14.0-18.0) g/dL Hct (42.0-52.0) % MCV (80.0-94.0) fL MCH (27.0-31.0) pg MCHC (32.0-36.0) g/dL RDW (12.0-15.0) % Plt Count (130-450) 10^3/uL MPV (7.4-11.4) fL Neut # (1.5-6.6) 10^3/uL Lymph # (1.5-3.5) 10^3/uL Mcleod # (0.0-1.0) 10^3/uL Eos # (0.0-0.7) 10^3/uL Baso # (0.0-0.1) 10^3/uL Absolute Nucleated RBC x10^3/uL Nucleated RBC % /100WBC VBG pH 7.285 L (7.31-7.41) VBG pCO2 40.5 L (41-51) mmHg VBG pO2 45.3 (25-47) mmHg VBG HCO3 18.8 L (23-28) mmol/L VBG Total CO2 20.1 L (24-29) mmol/L VBG O2 Saturation 81.4 H (60-80) % VBG Base Excess -7.3 L (-2 - +2) mmol/L Sodium 150 H 147 H (135-145) mmol/L Potassium 4.5 5.0 (3.5-5.0) mmol/L Chloride 116 H 110 (101-111) mmol/L Carbon Dioxide 19 L 18 L (21-32) mmol/L Anion Gap 15.0 H 19.0 H (6-13) BUN 85 H* 87 H* (6-20) mg/dL Creatinine 2.8 H 3.1 H (0.6-1.2) mg/dL Estimated GFR (MDRD) 23 L 20 L (>89) Glucose 620 H* 827 H* (70-100) mg/dL Calcium 9.7 9.8 (8.5-10.3) mg/dL Phosphorus (2.5-4.6) mg/dL Magnesium 3.5 H 3.7 H (1.7-2.8) mg/dL Total Bilirubin (0.2-1.0) mg/dL AST (10-42) IU/L ALT (10-60) IU/L Alkaline Phosphatase (42-121) IU/L Total Creatine Kinase (22-269) IU/L Troponin I (<0.49) ng/mL Total Protein (6.7-8.2) g/dL Albumin (3.2-5.5) g/dL Globulin (2.1-4.2) g/dL Albumin/Globulin Ratio (1.0-2.2) Amylase (28-100) U/L Lipase (22-51) U/L Serum Ketones NEGATIVE SMALL H (NEGATIVE) Assessment/Plan - Problem List (1) DKA (diabetic ketoacidoses) Impression: Patient presented with a 5 day history of weakness, lethargy, poor p.o. intake, thirst and finally significant altered mental status. The could not awaken him today and she brought him to the emergency room on 02/24. He was found to be in DKA and a diabetic coma. Insulin and fluids and empiric antibiotics were begun in the ED. He was transferred to the ICU for management of DKA and new onset of diabetes. He is now off the insulin drip but has needed 30 and then 40 units of short acting insulin for glucose of 470's and 500's. His coma has resolved and now speaking and appropriate but is still struggling to remember words and formulate answers. Plan: continue sliding scale increase lantus from 10 units sq bid to 30 units bid has been given 30 units novolog before lunch and 40 units before dinner continue to check ac glucose and give novolog as needed until goal of fasting < 125 and premeal <180 achieved. Qualifiers: Diabetes mellitus type: type 2 Diabetes mellitus complication detail: with coma Qualified Code(s): E11.11 - Type 2 diabetes mellitus with ketoacidosis with coma (2) DHRUV (acute kidney injury) Impression: from severe dehydration and rhabdomyolysis. responding to IVF and creatinine has improved. Plan: continue IV hydration. stop statin (3) Rhabdomyolysis Impression: either from laying down for too long as described by or from statin. Plan: statin stopped Continue IVF monitor levels. Qualifiers: Rhabdomyolysis type: non-traumatic Qualified Code(s): M62.82 - Rhabdomyolysis (4) Acute hypernatremia Impression: worsened with treatment for DKA changed to D5 1/2 NS and has improved from 160 to 156 Plan: continue D5 1/2 NS monitor bid. (5) Dysuria-frequency syndrome Impression: from hyperglycemia. No UTI on UA but does have hematuria. exam without balanitis. CT of pelvis with 6.5 cm renal cyst Plan: Check PSA will need US for fu to see if solid (6) Elevated amylase Impression: but not lipase. He has no abd pain. DD includes pancreatitis, hypertriglyceridemia, choledocholithiasis, pancreatic ascites, pseudocyst, peritonitis, cirrhosis/alcoholism CT of abdomen and pelvis shows small stones in GB but no cholecystitis, no CBD dilation, maybe early pancreatic inflammation He has no hx of alcoholism. Plan: check lipids in am for TG continue supportive care. (7) Metabolic encephalopathy Impression: acute, resolving. not quite at baseline but better. due to his DKA abd hyperntremia with severe dehydration. seen by PT today: Pt. is a cooperative 67 y.o. M who presents w/decreased indepedendence and safety for functional mobility; he remains somewhat sleepy and takes increased time to respond to questions and form sentences; he is normally independent and lives w/his ; he will need continued PT in the hospital to progress his activity safely and improve tolerance to out of bed standing, walking and sitting. Pt. is expected to continue making good progress while in the hospital ; he should be able to return home after hospital d/c. Recomment PT 1-2x/day for functional activity and progression of gait toward independent mobility. (8) Aneurysm of infrarenal abdominal aorta Impression: greater than 4 cm but not greater than 5 cm. will need q 6 month observation and good control of BP
--- NOTE | 2017-02-25 22:50 | Ultrasound Preliminary Report ---
Exam: US RETROPERITONEAL IMPRESSION: 1. Kidneys demonstrate no evidence of hydronephrosis. 2. There is a large postvoid residual bladder volume. [facility] SITE ID: [id number]
--- NOTE | 2017-02-25 22:52 | Ultrasound Report ---
EXAM: RENAL ULTRASOUND EXAM DATE: 02/25/2017 09:42 PM. CLINICAL HISTORY: Renal failure. COMPARISON: None. TECHNIQUE: Real-time scanning was performed with static images obtained. FINDINGS: Right Kidney: 14.2 x 6.8 x 6.2 cm. No evidence of hydronephrosis. There are several right renal cysts . No contour deforming mass. No shadowing stone. Left Kidney: 12.0 x 5.1 x 6.3 cm. No evidence of hydronephrosis. There are several cysts. No contour deforming mass. No shadowing stone. Bladder: Bilateral jets not seen. The prevoid bladder volume was 505 cc. The postvoid bladder volume was 430 cc. IMPRESSION: 1. Kidneys demonstrate no evidence of hydronephrosis. 2. There is a large postvoid residual bladder volume. [facility] Referring Provider Line: [phone] SITE ID: [id number]
[2017-02-26] MEDS: D5.45NS W/20 MEQ KCL 1,000 ML IV SCH ×4 (01:56→19:44)
[2017-02-26 05:33] LABS: ALBUMIN/GLOBULIN RATIO 1.1 (1.0-2.2); BILIRUBIN,TOTAL 0.9 mg/dL (0.2-1.0); MAGNESIUM 2.8 mg/dL (1.7-2.8); PHOSPHORUS 3.3 mg/dL (2.5-4.6); POTASSIUM 4.9 mmol/L (3.5-5.0); TOTAL PROTEIN 6.5 g/dL (6.7-8.2)
[2017-02-26 05:35] LABS: HEMOGLOBIN A1C 2.19 g/dL
[2017-02-26 05:44] LABS: PSA FREE 3.105 ng/mL (0.16-2.81)
[2017-02-26 05:45] LABS: PSA TOTAL 6.157 ng/mL (0.000-2.000)
[2017-02-26 05:47] LABS: CHOL/HDL RATIO 4.5 (<5.0); CHOLESTEROL 178 mg/dL; HDL CHOLESTEROL 40 mg/dL; LDL/HDL RATIO 2.4 (<3.6); TRIGLYCERIDES 221 mg/dL; VLDL CHOLESTEROL 44 mg/dL
[2017-02-26] MEDS: SODIUM CHLORIDE FLUSH 0.9% 10 ML SYRINGE IVP SCH ×3 (05:47→20:16)
[2017-02-26] MEDS ORDERED: INSULIN ASPART 300 UNIT/3 ML PEN SUBQ ONE (07:29)
[2017-02-26] MEDS ORDERED: INSULIN GLARGINE 300 UNIT/3 ML PEN SUBQ SCH (08:00)
[2017-02-26] MEDS: INSULIN ASPART 300 UNIT/3 ML PEN SUBQ SCH ×4 (08:14→20:14)
[2017-02-26] MEDS ORDERED: BENZOCAINE/MENTHOL LOZENGE MM PRN (08:45)
[2017-02-26] MEDS: POLYETHYLENE GLYCOL 3350 17 GM PACKET PO SCH (09:20)
[2017-02-26] MEDS: PANTOPRAZOLE 40 MG VIAL IVP SCH ×2 (09:20→20:16)
[2017-02-26] MEDS: HEPARIN 5,000 UNIT/ML VIAL SUBQ SCH ×2 (09:20→20:14)
[2017-02-26] MEDS: TAMSULOSIN 0.4 MG CAPSULE PO SCH (13:54)
--- NOTE | 2017-02-26 16:07 | PROVIDER PROGRESS NOTE ---
Subjective - Prog Note Date Prog Note Date: 02/26/17 Prog Note Time: 16:03 - Subjective Pt reports feeling: Improved Subjective: his speech is still affected by teeth by improving. getting up to bathroom no appetite still with urgency and frequency, has large post void residual Current Medications - Current Medications Current Medications: Active Medications Acetaminophen (Tylenol) 650 mg PO Q4HR PRN PRN Reason: Pain 1 to 4 Last Admin: 02/25/17 22:18 Dose: 650 mg Acetaminophen/Hydrocodone Bitart ([place] 10 Mg/325 Mg) 1 tab PO Q4HR PRN PRN Reason: Pain 8 to 10 Heparin Sodium (Porcine) () 5,000 unit SUBQ BID [facility] Last Admin: 02/26/17 09:20 Dose: 5,000 unit Insulin Human Regular 100 unit (/ Sodium Chloride) 100 mls @ 15 mls/hr IV .Q6H40M TAHIR; 15 UNIT/HR PRN Reason: Protocol Last Admin: 02/25/17 16:52 Dose: Not Given Potassium Chloride/Dextrose/Sod Cl (D5.45ns W/20 Meq Kcl) 1,000 mls @ 150 mls/ hr IV .Q6H40M [facility] Last Admin: 02/26/17 09:19 Dose: 150 mls/hr Insulin Aspart (Novolog) 2 - 10 unit SUBQ 0800,1200,1700,2100 T[facility]IR PRN Reason: Protocol Last Admin: 02/26/17 12:14 Dose: 8 unit Insulin Glargine (Lantus Solostar) 30 unit SUBQ QDBREAKFAST [facility] Last Admin: 02/26/17 08:17 Dose: 30 unit Insulin Glargine (Lantus Solostar) 30 unit SUBQ QPM [facility] Last Admin: 02/25/17 21:44 Dose: 30 unit Pantoprazole Sodium (Protonix) 40 mg IVP BID [facility] Last Admin: 02/26/17 09:20 Dose: 40 mg Polyethylene Glycol (Miralax) 17 gm PO DAILY [facility] Last Admin: 02/26/17 09:20 Dose: 17 gm Prochlorperazine Edisylate (Compazine Inj) 10 mg IVP Q6HR PRN PRN Reason: Nausea / Vomiting Sodium Chloride (Normal Saline Flush 0.9%) 10 ml IVP Q8HR [facility] Last Admin: 02/26/17 09:20 Dose: 10 ml Sodium Chloride (Normal Saline Flush 0.9%) 10 ml IVP PRN PRN PRN Reason: NEEDED PER PROVIDER ORDERS Tamsulosin HCl (Flomax) 0.4 mg PO DAILY [facility] Last Admin: 02/26/17 13:54 Dose: 0.4 mg Throat Lozenges (Cepacol) 1 lozenge MM Q2HR PRN PRN Reason: Throat pain Last Admin: 02/26/17 09:20 Dose: 1 lozenge Pravastatin [Pravachol] 40 mg PO QPM 02/24/17 Objective - Vital Signs/Intake & Output Reviewed Vital Signs: Yes Vital Signs: Vital Signs x48h Temp Pulse Resp BP Pulse Ox 02/26/17 14:00 36.7 C 92 23 128/65 92 02/26/17 11:17 93 21 133/81 H 93 02/26/17 10:12 93 21 141/78 H 93 02/26/17 10:00 37.5 C 85 20 141/78 H 96 02/26/17 09:19 96 24 132/77 H 92 02/26/17 08:23 99 15 163/83 H 97 Intake & Output: Intake & Output 02/23/17 02/24/17 02/25/17 02/26/17 23:59 23:59 23:59 23:59 Intake Total 4043.051 5409.591 4730 Output Total 750 3500 2260 Balance 3293.051 2703.893 3630 - Objective General Appearance: positive: No acute distress, Alert Eyes Bilateral: positive: PERRL, EOMI ENT: positive: Dry mucous membranes (still) Neck: positive: No JVD. negative: Stiff neck, Carotid bruit Respiratory: positive: Chest non-tender. negative: Wheezes, Rales, Rhonchi Cardiovascular: positive: Regular rate & rhythm. negative: Gallop/S4, Friction rub Abdomen: positive: Non-tender, No organomegaly, Nml bowel sounds, No distention , Other (large panus with reducible umbilical hernia) Skin: positive: Warm, Dry Extremities: positive: Non-tender, No pedal edema Neurologic/Psychiatric: positive: Oriented x3, CN's nml (2-12), Motor nml ( except really tired and weak) - Lab Results Fish Bones: 02/25/17 03:10 02/26/17 05:00 Other Labs: Lab Results x24hrs 02/26/17 02/26/17 02/26/17 Range/Units 07:59 05:00 05:00 Sodium (135-145) mmol/L Potassium (3.5-5.0) mmol/L Chloride (101-111) mmol/L Carbon Dioxide (21-32) mmol/L Anion Gap (6-13) BUN (6-20) mg/dL Creatinine (0.6-1.2) mg/dL Estimated GFR (MDRD) (>89) Glucose (70-100) mg/dL Glycated Hemoglobin (4.6-6.2) % Estim Average Glucose (70-100) Calcium (8.5-10.3) mg/dL Phosphorus (2.5-4.6) mg/dL Magnesium (1.7-2.8) mg/dL Total Bilirubin (0.2-1.0) mg/dL AST (10-42) IU/L ALT (10-60) IU/L Alkaline Phosphatase (42-121) IU/L Ammonia 33.9 (7-35) umol/L Total Protein (6.7-8.2) g/dL Albumin (3.2-5.5) g/dL Globulin (2.1-4.2) g/dL Albumin/Globulin Ratio (1.0-2.2) Triglycerides 221 H ( - 149) mg/dL Cholesterol 178 ( - 199) mg/dL LDL Cholesterol, Calc 94 ( - 129) mg/dL VLDL Cholesterol 44 mg/dL HDL Cholesterol 40 L (60 - ) mg/dL LDL/HDL Ratio 2.4 (<3.6) Cholesterol/HDL Ratio 4.5 (<5.0) Prostate Specific Ag 6.157 H (0.000-2.000) ng/mL Free PSA 3.105 H (0.16-2.81) ng/mL % Free PSA Calc 50 (25-100) % 02/26/17 02/26/17 Range/Units 05:00 05:00 Sodium 156 H* (135-145) mmol/L Potassium 4.9 (3.5-5.0) mmol/L Chloride 123 H* (101-111) mmol/L Carbon Dioxide 20 L (21-32) mmol/L Anion Gap 13.0 (6-13) BUN 60 H (6-20) mg/dL Creatinine 2.0 H (0.6-1.2) mg/dL Estimated GFR (MDRD) 33 L (>89) Glucose 399 H (70-100) mg/dL Glycated Hemoglobin 13.7 H (4.6-6.2) % Estim Average Glucose 346 H (70-100) Calcium 9.0 (8.5-10.3) mg/dL Phosphorus 3.3 (2.5-4.6) mg/dL Magnesium 2.8 (1.7-2.8) mg/dL Total Bilirubin 0.9 (0.2-1.0) mg/dL AST 80 H (10-42) IU/L ALT 99 H (10-60) IU/L Alkaline Phosphatase 79 (42-121) IU/L Ammonia (7-35) umol/L Total Protein 6.5 L (6.7-8.2) g/dL Albumin 3.4 (3.2-5.5) g/dL Globulin 3.1 (2.1-4.2) g/dL Albumin/Globulin Ratio 1.1 (1.0-2.2) Triglycerides ( - 149) mg/dL Cholesterol ( - 199) mg/dL LDL Cholesterol, Calc ( - 129) mg/dL VLDL Cholesterol mg/dL HDL Cholesterol (60 - ) mg/dL LDL/HDL Ratio (<3.6) Cholesterol/HDL Ratio (<5.0) Prostate Specific Ag (0.000-2.000) ng/mL Free PSA (0.16-2.81) ng/mL % Free PSA Calc (25-100) % Assessment/Plan - Problem List (1) DKA (diabetic ketoacidoses) Impression: Patient presented with a 5 day history of weakness, lethargy, poor p.o. intake, thirst and finally significant altered mental status. The could not awaken him today and she brought him to the emergency room on 02/24. He was found to be in DKA and a diabetic coma. Insulin and fluids and empiric antibiotics were begun in the ED. He was transferred to the ICU for management of DKA and new onset of diabetes. He is now off the insulin drip but has needed 30 and then 40 units of short acting insulin for glucose of 470's and 500's. His coma has resolved and now speaking and appropriate but is still struggling to remember words and formulate answers. Plan: continue sliding scale increaseed lantus from 10 units sq bid to 30 units bid on 02/25 has been given 30 units novolog before lunch and 40 units before dinner yesterday. This morning 25 units before breakfast. will increase lantus to 40 units in am and 50 units at hs. continue to check ac glucose and give novolog as needed until goal of fasting < 125 and premeal <180 achieved. Qualifiers: Diabetes mellitus type: type 2 Diabetes mellitus complication detail: with coma Qualified Code(s): E11.11 - Type 2 diabetes mellitus with ketoacidosis with coma (2) DHRUV (acute kidney injury) Impression: from severe dehydration and rhabdomyolysis. responding to IVF and creatinine has improved. he was 3.2 on admit and 2.0 today. Plan: continue IV hydration. stop statin (3) Rhabdomyolysis Impression: either from laying down for too long as described by or from statin. Plan: statin stopped Continue IVF monitor levels. Qualifiers: Rhabdomyolysis type: non-traumatic Qualified Code(s): M62.82 - Rhabdomyolysis (4) Acute hypernatremia Impression: worsened with treatment for DKA changed to D5 1/2 NS and has improved from 160 to 156 Plan: continue D5 1/2 NS monitor (5) Dysuria-frequency syndrome Impression: from hyperglycemia and BPH with LUTS. His PSA is high but ratio indicates low risk of adenoca. No UTI on UA but does have hematuria. exam without balanitis. CT of pelvis with 6.5 cm renal cyst and couldn't tell if solid. on US today it is a simple cyst. No hydronephrosis. Plan: Flomax 0.4 mg po daily (6) Elevated amylase Impression: but not lipase. He has no abd pain. DD includes pancreatitis, hypertriglyceridemia, choledocholithiasis, pancreatic ascites, pseudocyst, peritonitis, cirrhosis/alcoholism CT of abdomen and pelvis shows small stones in GB but no cholecystitis, no CBD dilation, maybe early pancreatic inflammation He has no hx of alcoholism. Triglycerides are only 221 so doubtful this caused pancreatitis. Plan: continue supportive care. (7) Metabolic encephalopathy Impression: acute, resolving. not quite at baseline but better. due to his DKA abd hyperntremia with severe dehydration. seen by PT today: Pt. is a 67 y.o. M admitted w/DKA who now presents ambulatory using FWW w/ continued need for assist w/safety cues during transfers, walking, and w/ management of A.D. He will need comtnued PT while in hospital to wean off use of waker and amb. independently (toward his stated previous level of function). Pt. is expected to be able to return home by time of hospital d/c. He shows good improvement today as he is better able to interact, follow cues and ambulates further w/no c/o fatigue. (8) Aneurysm of infrarenal abdominal aorta Impression: greater than 4 cm but not greater than 5 cm. will need q 6 month observation and good control of BP
[2017-02-26] MEDS ORDERED: INSULIN ASPART 300 UNIT/3 ML PEN SUBQ SCH (16:34)
[2017-02-26] MEDS: INSULIN GLARGINE 300 UNIT/3 ML PEN SUBQ SCH (20:15)
[2017-02-26] MEDS ORDERED: DEXTROSE 5% 1,000 ML IV ONE (22:26)
[2017-02-26] MEDS: DEXTROSE 5% 1,000 ML IV SCH (22:41)
[2017-02-27 06:07] LABS: BILIRUBIN,TOTAL 0.9 mg/dL (0.2-1.0); CALCIUM 8.4 mg/dL (8.5-10.3); CREATININE 1.5 mg/dL (0.6-1.2); MAGNESIUM 2.2 mg/dL (1.7-2.8); PHOSPHORUS 2.9 mg/dL (2.5-4.6); POTASSIUM 4.5 mmol/L (3.5-5.0); TOTAL PROTEIN 6.1 g/dL (6.7-8.2)
[2017-02-27] MEDS: DEXTROSE 5% 1,000 ML IV SCH (06:36)
[2017-02-27] MEDS: SODIUM CHLORIDE FLUSH 0.9% 10 ML SYRINGE IVP SCH ×3 (06:36→21:34)
[2017-02-27] MEDS: PHENOL THROAT SPRAY 177 ML MM PRN ×3 (06:40→22:22)
[2017-02-27] MEDS ORDERED: INSULIN ASPART 300 UNIT/3 ML PEN SUBQ ONE (07:52)
--- NOTE | 2017-02-27 08:04 | PROVIDER PROGRESS NOTE ---
Subjective - Prog Note Date Prog Note Date: 02/27/17 Prog Note Time: 08:03 - Subjective Pt reports feeling: Improved Subjective: He feels like his memory is coming back more more. But his states he still not back to baseline. His main complaint is a sore throat, and it is hard for him to focus and see. He feels like his eyes just do not want to work. It is more a problem with focusing and blurred vision and it is with spots in front of his eyes, darkness in front of his eyes, or segmental vision loss. Current Medications - Current Medications Current Medications: Active Medications Acetaminophen (Tylenol) 650 mg PO Q4HR PRN PRN Reason: Pain 1 to 4 Last Admin: 02/25/17 22:18 Dose: 650 mg Acetaminophen/Hydrocodone Bitart ([place] 10 Mg/325 Mg) 1 tab PO Q4HR PRN PRN Reason: Pain 8 to 10 Heparin Sodium (Porcine) () 5,000 unit SUBQ BID [facility] Last Admin: 02/26/17 20:14 Dose: 5,000 unit Insulin Human Regular 100 unit (/ Sodium Chloride) 100 mls @ 15 mls/hr IV .Q6H40M [facility]; 15 UNIT/HR PRN Reason: Protocol Last Admin: 02/25/17 16:52 Dose: Not Given Insulin Aspart (Novolog) 2 - 10 unit SUBQ 0800,1200,1700,2100 [facility] PRN Reason: Protocol Last Admin: 02/26/17 20:14 Dose: 8 unit Insulin Glargine (Lantus Solostar) 40 unit SUBQ QPM [facility] Last Admin: 02/26/17 20:15 Dose: 40 unit Insulin Glargine (Lantus Solostar) 50 unit SUBQ QDBREAKFAST [facility] Multi-Ingredient Mouthwash/Gargle () 30 ml PO Q4H PRN PRN Reason: Mouth Sore Pain Pantoprazole Sodium (Protonix) 40 mg IVP BID [facility] Last Admin: 02/26/17 20:16 Dose: 40 mg Phenol/Menthol (Chloraseptic) 2 sprays MM Q2HR PRN PRN Reason: Throat Pain Last Admin: 02/27/17 06:40 Dose: 2 sprays Polyethylene Glycol (Miralax) 17 gm PO DAILY [facility] Last Admin: 02/26/17 09:20 Dose: 17 gm Prochlorperazine Edisylate (Compazine Inj) 10 mg IVP Q6HR PRN PRN Reason: Nausea / Vomiting Sodium Chloride (Normal Saline Flush 0.9%) 10 ml IVP Q8HR [facility] Last Admin: 02/27/17 06:36 Dose: 10 ml Sodium Chloride (Normal Saline Flush 0.9%) 10 ml IVP PRN PRN PRN Reason: NEEDED PER PROVIDER ORDERS Tamsulosin HCl (Flomax) 0.4 mg PO DAILY [facility] Last Admin: 02/26/17 13:54 Dose: 0.4 mg Throat Lozenges (Cepacol) 1 lozenge MM Q2HR PRN PRN Reason: Throat pain Last Admin: 02/26/17 09:20 Dose: 1 lozenge Pravastatin [Pravachol] 40 mg PO QPM 02/24/17 Objective - Vital Signs/Intake & Output Reviewed Vital Signs: Yes Vital Signs: Vital Signs x48h Temp Pulse Resp BP Pulse Ox 02/27/17 07:27 37.5 C 87 18 106/68 94 Intake & Output: Intake & Output 02/24/17 02/25/17 02/26/17 02/27/17 23:59 23:59 23:59 23:59 Intake Total 4043.051 5409.591 7663.5 1200.583 Output Total 750 3500 2500 1485 Balance 3293.051 8622.453 6678.5 -284.417 - Objective General Appearance: positive: No acute distress, Alert, Other (Tall moderately overweight white male who looks his stated age, sitting up at the side of the bed comfortably) Eyes Bilateral: positive: PERRL, EOMI ENT: positive: Pharyngeal erythema, Other (Punctate white exudates some of them yellow that are difficult to peel off his soft palate, uvula, anterior and posterior folds.) Neck: positive: Lymphadenopathy (R) (Shotty, nontender), Lymphadenopathy (L) ( [place], nontender). negative: No JVD, Stiff neck, Carotid bruit Respiratory: positive: Chest non-tender. negative: Wheezes, Rales, Rhonchi Cardiovascular: positive: Regular rate & rhythm. negative: Gallop/S4, Friction rub Abdomen: positive: Non-tender, No organomegaly, Nml bowel sounds, No distention , Other (A large pannus with an easily reducible umbilical hernia) Skin: positive: Warm, Dry Extremities: positive: Non-tender, Full ROM Neurologic/Psychiatric: positive: Oriented x3, CN's nml (2-12), Motor nml - Lab Results Fish Bones: 02/25/17 03:10 02/27/17 05:46 Other Labs: Lab Results x24hrs 02/27/17 02/26/17 Range/Units 05:46 07:59 Sodium 146 H (135-145) mmol/L Potassium 4.5 (3.5-5.0) mmol/L Chloride 119 H (101-111) mmol/L Carbon Dioxide 20 L (21-32) mmol/L Anion Gap 7.0 (6-13) BUN 32 H (6-20) mg/dL Creatinine 1.5 H (0.6-1.2) mg/dL Estimated GFR (MDRD) 46 L (>89) Glucose 247 H (70-100) mg/dL Calcium 8.4 L (8.5-10.3) mg/dL Phosphorus 2.9 (2.5-4.6) mg/dL Magnesium 2.2 (1.7-2.8) mg/dL Total Bilirubin 0.9 (0.2-1.0) mg/dL AST 53 H (10-42) IU/L ALT 84 H (10-60) IU/L Alkaline Phosphatase 72 (42-121) IU/L Ammonia 33.9 (7-35) umol/L Total Protein 6.1 L (6.7-8.2) g/dL Albumin 3.1 L (3.2-5.5) g/dL Globulin 3.0 (2.1-4.2) g/dL Albumin/Globulin Ratio 1.0 (1.0-2.2) Amylase 593 H* (28-100) U/L Assessment/Plan - Problem List (1) Joanna laryngitis Impression: has had a sore throat for weeks and really bad here. but he wasn't able to verbalize that until yesterday.I have to wonder if he has Joanna esophagitis. If he does not improve, consider an EGD in the outpatient setting Plan: already on magic mouthwash add nystatin swish and spit qid (2) Uncontrolled type 2 diabetes mellitus Impression: Getting better and better control as I have increase his Lantus, and sliding scale insulin before meals. Plan: Add 10 units of short acting insulin before each meal plus sliding scale in addition to the Lantus Ongoing diabetic education with the nurses in teaching him how to check his sugars, and give himself insulin. So far he is not succeeded and is relying on his . Nutrition consult for carb control Qualifiers: Diabetes mellitus complication status: with oral complications Diabetes mellitus extermination inspector insulin use: without usp use (3) DKA (diabetic ketoacidoses) Impression: Resolved. Patient presented with a 5 day history of weakness, lethargy, poor p.o. intake, thirst and finally significant altered mental status. The could not awaken him today and she brought him to the emergency room on 02/24. He was found to be in DKA and a diabetic coma. Insulin and fluids and empiric antibiotics were begun in the ED. He was transferred to the ICU for management of DKA and new onset of diabetes. He is now off the insulin drip but has needed 30 and then 40 units of short acting insulin for glucose of 470's and 500's. His coma has resolved and now speaking and appropriate but is still struggling to remember words and formulate answers. Qualifiers: Diabetes mellitus type: type 2 Diabetes mellitus complication detail: with coma Qualified Code(s): E11.11 - Type 2 diabetes mellitus with ketoacidosis with coma (4) DHRUV (acute kidney injury) Impression: from severe dehydration and rhabdomyolysis. responding to IVF and creatinine has improved. he was 3.2 on admit and 1.5 today. Plan: continue IV hydration. stop statin (5) Rhabdomyolysis Impression: either from laying down for too long as described by or from statin. Plan: statin stopped Continue IVF monitor levels. Qualifiers: Rhabdomyolysis type: non-traumatic Qualified Code(s): M62.82 - Rhabdomyolysis (6) Acute hypernatremia Impression: worsened with treatment for DKA changed to D5 1/2 NS and has improved from 160 to 156 and today 146. Plan: change to 1/2 normal saline only without D5 monitor (7) Dysuria-frequency syndrome Impression: from hyperglycemia and BPH with LUTS. His PSA is high but ratio indicates low risk of adenoca. No UTI on UA but does have hematuria. exam without balanitis. CT of pelvis with 6.5 cm renal cyst and couldn't tell if solid. on US today it is a simple cyst. No hydronephrosis. Plan: Flomax 0.4 mg po daily (8) Elevated amylase Impression: but not lipase. He has no abd pain. DD includes pancreatitis, hypertriglyceridemia, choledocholithiasis, pancreatic ascites, pseudocyst, peritonitis, cirrhosis/alcoholism CT of abdomen and pelvis shows small stones in GB but no cholecystitis, no CBD dilation, maybe early pancreatic inflammation He has no hx of alcoholism. Triglycerides are only 221 so doubtful this caused pancreatitis. amylase 593 today Plan: continue supportive care. (9) Metabolic encephalopathy Impression: acute, resolving. not quite at baseline but better. due to his DKA abd hyperntremia with severe dehydration. seen by PT today: Pt. resting in room; RENAL MEDICINE SPECIALIST reports pt. is fatigued this p.m. when taking vital signs earlier; allow pt. to rest this p.m. F/u w/PT in a.m. expect d/c tomorrow; solar manager, [place] reports pt. has [employer] insurance and she has ordered pt's FWW for home; they will deliver walker to pt. He is expected to have home health or out pt. PT after d/c. (10) Aneurysm of infrarenal abdominal aorta Impression: greater than 4 cm but not greater than 5 cm. will need q 6 month observation and good control of BP
[2017-02-27] MEDS: INSULIN GLARGINE 300 UNIT/3 ML PEN SUBQ SCH ×2 (08:20→21:33)
[2017-02-27] MEDS: TAMSULOSIN 0.4 MG CAPSULE PO SCH (08:21)
[2017-02-27] MEDS: PANTOPRAZOLE 40 MG VIAL IVP SCH ×2 (08:21→21:33)
[2017-02-27] MEDS: HEPARIN 5,000 UNIT/ML VIAL SUBQ SCH ×2 (08:21→21:33)
[2017-02-27] MEDS: INSULIN ASPART 300 UNIT/3 ML PEN SUBQ SCH ×6 (08:22→21:33)
[2017-02-27] MEDS: POLYETHYLENE GLYCOL 3350 17 GM PACKET PO SCH (08:23)
[2017-02-27] MEDS: MAGIC MOUTHWASH 120 ML BOTTLE PO PRN ×3 (08:45→23:43)
[2017-02-27] MEDS ORDERED: SODIUM CHLORIDE 0.45% 1,000 ML IV SCH (10:00)
[2017-02-27] MEDS: NYSTATIN 500000 UNITS/5 ML UDC PO SCH ×4 (10:23→21:33)
--- NOTE | 2017-02-27 12:43 | MRI Preliminary Report ---
Exam: MRI BRAIN W/O IMPRESSION: 1.No acute intracranial abnormality. No acute infarct, mass, or hemorrhage. 2. Mild senescent change. Age-related volume loss. Minimal white matter T2/FLAIR bright signal is see n. Its is nonspecific but typically secondary to small vessel ischemic change. [facility] SITE ID: [id number]
--- NOTE | 2017-02-27 12:52 | MRI Report ---
EXAM: MRI BRAIN WITHOUT CONTRAST EXAM DATE: 02/27/2017 12:00 PM. CLINICAL HISTORY: Altered mental status not clearing. COMPARISON: CT scan of the head 02/24/2017. TECHNIQUE: Multiplanar, multisequence T1-weighted and fluid-sensitive MR sequences of the brain were performed. Sequences optimized for routine evaluation. Other: None. IV Contrast: None. FINDINGS: Brain Volume: Normal for age. Parenchyma/Dura: No mass, acute infarct or hemorrhage. Minimal confluent periventricular with scatter ed punctate deep and subcortical foci of white matter T2/FLAIR bright signal is seen in the cerebral hemispheres. No cortical signal abnormality. Ventricles/Cisterns: No hydrocephalus. No abnormal extra-axial fluid collection or hemorrhage. Orbits: Symmetric and unremarkable. Sella [place]: The pituitary gland, cavernous sinuses, suprasellar cistern and optic chiasm are unrem arkable. IAC: Symmetric and unremarkable. Vasculature: Normal signal flow void is seen in the major arterial structures at the skull base. Note is made of a bulbous appearance to the basilar tip without definite aneurysm. Sinuses: No acute sinusitis. Mucous retention cyst is seen inferiorly in the left maxillary antrum. Bones: No focal pathologic appearing marrow signal changes. Other: None. IMPRESSION: 1.No acute intracranial abnormality. No acute infarct, mass, or hemorrhage. 2. Mild senescent change. Age-related volume loss. Minimal white matter T2/FLAIR bright signal is see n. This is nonspecific but typically secondary to small vessel ischemic change. [facility] Referring Provider Line: [phone] SITE ID: [id number]
[2017-02-28] MEDS: SODIUM CHLORIDE FLUSH 0.9% 10 ML SYRINGE IVP SCH ×2 (05:42→09:13)
[2017-02-28] MEDS: MAGIC MOUTHWASH 120 ML BOTTLE PO PRN (05:43)
[2017-02-28] MEDS: INSULIN ASPART 300 UNIT/3 ML PEN SUBQ SCH ×4 (09:07→11:41)
[2017-02-28] MEDS: HEPARIN 5,000 UNIT/ML VIAL SUBQ SCH (09:09)
[2017-02-28] MEDS: INSULIN GLARGINE 300 UNIT/3 ML PEN SUBQ SCH (09:09)
[2017-02-28] MEDS: POLYETHYLENE GLYCOL 3350 17 GM PACKET PO SCH (09:11)
[2017-02-28] MEDS: TAMSULOSIN 0.4 MG CAPSULE PO SCH (09:14)
[2017-02-28] MEDS: PANTOPRAZOLE 40 MG VIAL IVP SCH (09:14)
[2017-02-28] MEDS: NYSTATIN 500000 UNITS/5 ML UDC PO SCH ×2 (09:14→13:07)
[2017-02-28 09:26] LABS: BILIRUBIN,TOTAL 0.9 mg/dL (0.2-1.0); CALCIUM 8.7 mg/dL (8.5-10.3); CREATININE 1.3 mg/dL (0.6-1.2); POTASSIUM 3.7 mmol/L (3.5-5.0); TOTAL PROTEIN 5.8 g/dL (6.7-8.2)
--- NOTE | 2017-02-28 11:27 | Discharge Plan ---
Discharge Plan Disposition: Home, Self Care Condition: Good Prescriptions: Blood Sugar Diagnostic [Glucometer Strips] 1 bottle MC TID #1 bottle Blood-Glucose Meter [Glucometer] 1 each MC DAILY #1 each Insulin Lispro [Humalog Kwikpen U-100] 10 unit SQ TID #2 insuln.pen Insulin NPH Human Isophane [Humulin N Kwikpen] 50 unit SQ BIDAC #10 insuln.pen Lancets 1 bottle MC TID #1 each Lidocaine HCl [Lidocaine HCl Viscous] 5 ml MM Q4H PRN #500 ml PRN Reason: Mouth Sore Pain [place], Disposable [Needle] 1 bottle MC TID #1 dis.needle Nystatin 5 ml PO QID #480 ml Tamsulosin [Flomax] 0.4 mg PO DAILY #30 capsule Diet: Diabetic Activity Restrictions: Activity as Tolerated Shower Restrictions: No Driving Restrictions: No Assistance Devices: Walker Additional Instructions or Follow Up instructions: You were admitted to the hospital because of gradually changing alertness. You had finally gotten to the point that you were unresponsive and your had to bring you to the emergency room with 911. We found you to have several problems. The first of which was severe, severe dehydration and acute kidney injury from that dehydration. You were in diabetic ketoacidosis as the cause of that. We placed you in the intensive care unit, gave you an insulin drip, a lot of hydration via an IV, and you improved. We transitioned you from an IV insulin drip to long-acting insulin and short acting insulin combination. Your glucose was 1220 on admission and this morning on the day of discharge you came down to 148. At discharge we had to change your Lantus to NPH at the request of your insurance company and Dr. Paul. Dr. Paul will see you in the next week or 2. Make sure you keep a glucose diary for him to review so he can adjust your NPH and short acting insulin, lispro. Your dehydration and kidney function improved. At one point you were so water deprived that the sodium got dangerously high at 160. On the day of discharge you are normal at 145. You did have mild pancreatitis. Causes of pancreatitis include alcoholism, gallstones, medications, or very high triglycerides. While we did find gallstones, none were blocking the common bile duct. All other causes were not found. Make sure Dr. Paul checks your blood work when he sees you by ordering an amylase and lipase. The only other incidental finding was that of an abdominal aortic aneurysm that is below your kidney level. You need to have Dr. Paul do follow-up studies in 6 months. The most important thing to keep that aneurysm at the same size is to keep your blood pressure well controlled. You also had severe Joanna pharyngitis and laryngitis. You are being sent home with the [facility] to swish and spit for the next few days. You will swish and spit 4 times a day. You had quite a bit of urinary urgency and frequency. While you can see that with diabetes that is uncontrolled, and ultrasound found you to have a large amount of urine retained in your bladder. Your PSA was elevated. We think you have a large prostate and that was contributing to the problem. So you have been started on a new medication called Flomax to help that. You have quite a bit of mouth pain because of the Joanna. While here, you took something called Magic mouthwash which is a combination of Benadryl elixir , Mylanta reflux medication, and viscous lidocaine. Your pharmacy does not compound so your particular pharmacy does not have Magic mouthwash. So you can go home on viscous lidocaine. I have prescribed a bottle. You can mix 2 teaspoons of viscous lidocaine with 2 teaspoons of Mylanta and put that in an ounce of warm water. Swish and spit every 2-4 hours as needed for mouth pain. Please see Dr. Paul in the next 1-2 weeks. He needs to check a CBC, CMP, amylase and lipase. And again, he will review your glucose diary and adjust your NPH and lispro as necessary. Follow-Up Care: Outpatient Rehab - PT, [facility] - Diabetes Ed No Smoking: If you smoke, Please STOP! Call for help. Follow-up with: Allan Paul MD [Primary Care Provider] -
[2017-02-28 15:38] VITALS: BP 121/60
--- NOTE | 2017-03-03 13:06 | DISCHARGE SUMMARY ---
PRIMARY CARE PROVIDER:OF DISCHARGE: Allan Paul MD DIAGNOSES: 1. Hyperosmolar hyperglycemic nonketotic syndrome with coma. 2. Mild diabetic ketoacidosis. 3. Njllb-br-xbpetxm kidney insufficiency. 4. Pancreatitis. 5. Cholelithiasis. 6. Rhabdomyolysis. 7. Acute hypernatremia. 8. Benign prostatic hypertrophy with . 9. Abdominal aortic aneurysm of infrarenal abdominal aorta. 10. Joanna pharyngitis laryngitis. DISCHARGE MEDICATIONS: 1. Glucometer with test strips and lancets. 2. Lispro KwikPen 10 units subcutaneous a.c. t.i.d. with needles. 3. Humulin NPH 50 units subcutaneous b.i.d. with insulin pens. 4. Viscous lidocaine 5 mL mixed with 0.5 mL of Mylanta and another 5 mL of warm water, swish and spit 2-4 hours p.r.n. mouth pain. 4. Nystatin swish and spit 5 mL p.o. q.i.d. 5. Pravastatin 40 mg p.o. daily. 6. Flomax 0.4 mg p.o. daily. PRINCIPAL PROCEDURES: Abdomen and pelvis CT done for abdominal pain shows several tiny gallstones, but no biliary duct dilatation. Linear stranding surrounding the pancreatic tail. A 6.4 cm indeterminate lesion superior pole of the right kidney. Diverticulosis. 6.4 cm fat-filled nonentrapped umbilical hernia. 4.4 cm infrarenal abdominal aortic aneurysm over a [address] with generalized age-related cortical atrophic changes. Retroperitoneal ultrasound showing no hydronephrosis, large postvoid residual bladder. Several right renal cysts. No contour deforming mass. Chest x-ray with volume loss with small atelectasis left base. DIAGNOSTIC IMAGING: Brain MRI showing senescent changes of aging, but no acute intracranial abnormality. HOSPITAL COURSE: The patient is a 67-year-old white male who has a history of hyperlipidemia, borderline glucose intolerance. For the last close to 2 weeks, he has had increasing thirst, increasing drive to drink water, milk. Mouth has been increasingly dry. He started developing a grumbling stomach with increasing abdominal aching. In the 3-5 days before admission, he then developed sleepiness, and he started complaining of loss of vision with blurred vision. When the could not awaken him today, she brought him to the emergency room. He was found to have hyperosmolar hyperglycemic nonketotic syndrome. He was initially diagnosed with DKA but ketones were negative. His initial glucose was 1220. His initial potassium was 6.0. BUN 90, creatinine 3.1. Lactic acid 3.9. White blood count was elevated at 15.6, hemoglobin 19.1. Evaluation with chest x-ray, CT of the head were done as above and showed no acute stroke. Initial urinalysis had a large amount of occult blood and glucosuria, trace ketones, but no infection. Troponin was less than 0.04 and less than 0.05 in the first 24 hours, checked 5 times. HOSPITAL COURSE: The patient was placed in the ICU and started on insulin drip with aggressive IV hydration. As his sugar came down, he transitioned to mild diabetic ketoacidosis in that he developed ketones. With the aggressive hydration with normal saline, he then developed severe hypernatremia. He went from 141, sodium to 160 sodium. We changed him to D5 half normal saline and there was improvement in sodium going from 160-156. We then transitioned him to complete half normal saline and sodium was 145 on the day of discharge. His BUN and creatinine improved as well and his acute kidney failure superimposed on chronic was felt to be stable. BUN was 22 and creatinine 1.3 on the day of discharge. With regard to issues of pancreatitis, his did describe vague abdominal discomfort as a presenting symptom. During his stay, most of his discomfort centered around an easily reducible umbilical hernia and had nothing to do with pancreatitis. Amylase level came down. Again, at no time did the patient have acute epigastric pain, fevers or chills with this. While he has asymptomatic gallstones, we are not sure if the gallstones were the cause of amylase or it is idiopathic. He will have to watch for the future signs of recurrent pancreatitis or common bile duct stones. Because he has been getting gradually sleepier and sleepier, he has spent quite a bit of time lying down before he came into the hospital. He was diagnosed as having rhabdomyolysis. Again, that was treated with aggressive hydration. He complained of urgency and frequency that have been going on for several months, but really has worsened in the last 2 weeks. I initially attributed it to his hyperosmolar hyperglycemic syndrome, examined him to make sure there was no balanitis or yeast of the penis. I then did a retroperitoneal ultrasound and he had a large postvoid residual. He has a mildly elevated PSA to 6. I put him on Flomax and he had improvement of symptoms by at least 50%. As part of the workup for his pancreatitis to identify his stones, he was identified as having an incidental abdominal aortic aneurysm. That will need to be watched carefully over the next few years. I would recommend imaging every 6 months with a goal of keeping blood pressure at less than 140/90. After he had been out of the ICU for 2 days, the patient was now alert and awake enough to tell us that his mouth hurts tremendously. It really hurt to swallow. On examination, he had punctate white lesions of the uvula, upper soft palate, anterior and posterior pharyngeal folds, compatible with Joanna pharyngitis and laryngitis. He was started on Magic mouthwash for pain and had great pain relief with that, and was also started on Nystatin swish and spit. He will need to complete that for probably up to 3 weeks. He received diabetic instruction from the nurses. Initially, his was taught how to do the insulin and then he was taught. On the day of discharge, he showed that he knew what he was doing by giving himself his own insulin shots. He still needs to be involved in diabetic education in the outpatient setting. Nutrition services met with him to start describing carb counting, a carb-restricted diet, and overall improving protein intake, as well as fruit and vegetable intake. Physical therapy saw him for weakness and severe fatigue. At one point, he was needing a walker. On discharge he was able to transfer from a supine to a sitting position independently. He is able to then transfer from a sitting to standing position and use a front-wheeled walker without dizziness or lightheadedness. He ambulated 600 feet and initially used a walker. We then trialed him without an assistive device and he does have moderate path deviations will mild left listing. He is impulsive with his transfers and ambulation including the stairs. We have been educating that if he moves too quickly, he puts himself at greater risk for falling. We recommend that he continue to have outpatient physical therapy to improve his balance and activity tolerance. At discharge, his insurance company did not want him to go home on Lantus or NovoLog. They requested a switch to Humulin N and Lispro. I did a warm hand off to Dr. Paul and he will be seeing the patient in followup. The patient is instructed to make sure he keeps a glucose diary and take that in to Dr. Paul so Dr. Paul can adjust his insulin as needed. DISCHARGE EXAMINATION was a temperature of 36.9, pulse of 91, blood pressure 121 /60, respirations 17 and 95% on room air. He is a tall, alert, white male who looks stated age, with a large rotund pannus and abdominal wall. He has a nasal tone of voice, dentures do not fit well and he sometimes lisps. He is alert and oriented to person, place and time. NECK: Supple, without carotid bruits. LUNGS: Clear and a large AP diameter chest without crackles, rhonchi or wheezing and he has no increased respiratory effort. HEART: He has a regular rate and rhythm. ABDOMEN: Hugely obese, with a huge pannus and an easily reducible large 4-6 cm umbilical hernia. No rebound, no guarding. Because his pannus is so large it is really difficult to assess for organomegaly. He does not have any epigastric or left upper quadrant pain. EXTREMITIES: He has mild Joanna intertrigo underneath the abdominal pannus. Scrotum is large and fluid filled at this time; this is from aggressive fluid resuscitation. He has an uncircumcised penis with no balanitis. The legs have trace edema. He walks with a slight wide-based gait. Greater than 30 minutes was spent in coordinating his medications, insurance authorization, speaking to Dr. Paul, patient education. TD: 03/01/2017 17:30 VINEET
== END 2017-02-28 16:42 | disposition home or self-care (01) | DRG 637 ==
LOC: EDUNIT# → ED 10:23 → ICU 14:42 → MS2 02-26 19:53
PROVIDERS: ADMIT Internal Medicine; ATTEND Specialist
DX: E11.10 Type 2 diabetes mellitus with ketoacidosis without coma (principal); E11.01 Type 2 diabetes mellitus with hyperosmolarity with coma; K85.90 Acute pancreatitis without necrosis or infection, unspecified; I10 Essential (primary) hypertension; Z87.891 Personal history of nicotine dependence; G93.41 Metabolic encephalopathy; N17.9 Acute kidney failure, unspecified; M62.82 Rhabdomyolysis; E87.0 Hyperosmolality and hypernatremia; B37.89 Other sites of candidiasis; E11.22 Type 2 diabetes mellitus with diabetic chronic kidney disease; I12.9 Hypertensive chronic kidney disease with stage 1 through stage 4 chronic kidney disease, or unspecified chronic kidney disease; E86.0 Dehydration; E87.5 Hyperkalemia; N18.9 Chronic kidney disease, unspecified; K80.20 Calculus of gallbladder without cholecystitis without obstruction; N40.1 Benign prostatic hyperplasia with lower urinary tract symptoms; R33.8 Other retention of urine; J02.8 Acute pharyngitis due to other specified organisms; J04.0 Acute laryngitis; E78.5 Hyperlipidemia, unspecified; K42.9 Umbilical hernia without obstruction or gangrene; R35.0 Frequency of micturition; R39.15 Urgency of urination; E11.638 Type 2 diabetes mellitus with other oral complications; B37.2 Candidiasis of skin and nail; E66.9 Obesity, unspecified; Z68.38 Body mass index [BMI] 38.0-38.9, adult; Z78.1 Physical restraint status; Z79.899 Other long term (current) drug therapy
CPT/HCPCS: 36415; 70450; 70551; 71010; 74176; 76770; 80048; 80053; 80061; 80074; 81001; 81003; 82009; 82140; 82150; 82550; 82803; 82947; 83036; 83605; 83690; 83735; 84100; 84154; 84295; 84484; 85025; 85610; 85730; 87040; 87086; 87150; 93005; 96361; 96365; 96368; 99285; 99291

== ENCOUNTER 2017-03-21 09:54 | Outpatient (CLI) | payer MEDICARE ==
[2017-03-21 18:47] LABS: ALBUMIN 3.4 g/dL (3.2-5.5); ALBUMIN/GLOBULIN RATIO 0.9 (1.0-2.2); BILIRUBIN,TOTAL 0.5 mg/dL (0.2-1.0); CALCIUM 9.1 mg/dL (8.5-10.3); CREATININE 1.1 mg/dL (0.6-1.2); TOTAL PROTEIN 7.1 g/dL (6.7-8.2)
[2017-03-21 19:02] LABS: BASOPHILS % (AUTO) 0.8 %; EOSINOPHILS # (AUTO) 0.3 10^3/uL (0.0-0.7); HGB - HEMOGLOBIN 13.5 g/dL (14.0-18.0); LYMPHOCYTES % (AUTO) 17.8 %; MEAN CORPUSCULAR HGB CONC 32.8 g/dL (32.0-36.0); MEAN CORPUSCULAR VOLUME 91.5 fL (80.0-94.0); MEAN PLATELET VOLUME 6.1 fL (7.4-11.4); MONOCYTES # (AUTO) 0.4 10^3/uL (0.0-1.0); MONOCYTES % (AUTO) 7.3 %; NEUTROPHILS % (AUTO) 68.1 %; PLT - PLATELET COUNT 420 10^3/uL (130-450); RED CELL DISTRIBUTION WIDTH 14.3 % (12.0-15.0); WHITE BLOOD COUNT 5.8 x10^3/uL (4.8-10.8)
[2017-03-21 19:13] LABS: MICROALBUM/CREATININE RATIO,UR 7.8 ug/mg (<30.0); MICROALBUMIN,URINE 2.2 mg/dL (0-300.0)
[2017-03-21 20:40] LABS: HB2 TOTAL 14.6 g/dL; HEMOGLOBIN A1C 1.47 g/dL; HEMOGLOBIN A1C % 11.4 % (4.6-6.2)
== END 2017-03-21 09:55 | disposition home or self-care (01) ==
LOC: LAB.F 09:54
PROVIDERS: ATTEND Internal Medicine
DX: I12.9 Hypertensive chronic kidney disease with stage 1 through stage 4 chronic kidney disease, or unspecified chronic kidney disease (principal); N18.3 Chronic kidney disease, stage 3 (moderate); K63.5 Polyp of colon; E78.5 Hyperlipidemia, unspecified; R73.01 Impaired fasting glucose; E66.9 Obesity, unspecified; R19.5 Other fecal abnormalities; M62.82 Rhabdomyolysis
CPT/HCPCS: 36415; 80053; 82043; 82550; 82570; 83036; 85025

== ENCOUNTER 2017-06-02 08:49 | Outpatient (CLI) | payer MEDICARE ==
[2017-06-02 13:24] LABS: HB2 TOTAL 15.9 g/dL; HEMOGLOBIN A1C 0.59 g/dL; HEMOGLOBIN A1C % 5.5 % (4.6-6.2)
== END 2017-06-02 08:50 | disposition home or self-care (01) ==
LOC: LAB.F 08:49
PROVIDERS: ATTEND Internal Medicine
DX: I71.4 Abdominal aortic aneurysm, without rupture (principal); N40.0 Benign prostatic hyperplasia without lower urinary tract symptoms; N18.3 Chronic kidney disease, stage 3 (moderate); K63.5 Polyp of colon; E11.9 Type 2 diabetes mellitus without complications; E78.5 Hyperlipidemia, unspecified; E66.9 Obesity, unspecified; R19.5 Other fecal abnormalities; I12.9 Hypertensive chronic kidney disease with stage 1 through stage 4 chronic kidney disease, or unspecified chronic kidney disease
CPT/HCPCS: 36415; 83036

== ENCOUNTER 2017-07-28 09:28 | Outpatient (CLI) | payer MEDICARE ==
--- NOTE | 2017-07-28 10:34 | Ultrasound Report ---
LIMITED RETROPERITONEAL ULTRASOUND: 07/28/2017 CLINICAL INDICATION: Followup aortic aneurysm. COMPARISON: CT abdomen and pelvis 02/24/2017. TECHNIQUE: Real-time scanning was performed with medical billing representative static images obtained. FINDINGS: The abdominal aorta measures 3.6 cm proximally and 2.9 cm in the mid portion. Distal aneurysmal dilatation is again seen, measuring up to 4.3 cm, stable from CT. The iliacs are normal in caliber. No free fluid is present. IMPRESSION: STABLE DISTAL ABDOMINAL AORTIC ANEURYSM, MEASURING 4.3 CM TRANSVERSE (PREVIOUSLY 4.[address] TD: 07/28/2017 10:33
== END 2017-07-28 09:29 | disposition home or self-care (01) ==
LOC: DI 09:28
PROVIDERS: ATTEND Internal Medicine
DX: I71.4 Abdominal aortic aneurysm, without rupture (principal)
CPT/HCPCS: 76775

== ENCOUNTER 2017-08-04 07:49 | Outpatient (CLI) | payer MEDICARE ==
[2017-08-04 12:16] LABS: BUN - BLOOD UREA NITROGEN 26 mg/dL (6-20); CARBON DIOXIDE - CO2 23 mmol/L (21-32); CHLORIDE 110 mmol/L (101-111); CHOL/HDL RATIO 3.9 (<5.0); CHOLESTEROL 154 mg/dL; GFR - MDRD 74 (>89); GLUCOSE 105 mg/dL (70-100); HDL CHOLESTEROL 39 mg/dL; LDL CHOLESTEROL,CALCULATED 94 mg/dL; LDL/HDL RATIO 2.4 (<3.6); SODIUM 141 mmol/L (135-145); VLDL CHOLESTEROL 21 mg/dL
[2017-08-04 12:17] LABS: HB2 TOTAL 16.6 g/dL; HEMOGLOBIN A1C 0.66 g/dL; HEMOGLOBIN A1C % 5.8 % (4.6-6.2); MICROALBUM/CREATININE RATIO,UR 7.5 ug/mg (<30.0); MICROALBUMIN,URINE 0.9 mg/dL (0-300.0)
[2017-08-08 18:58] LABS: HEPATITIS C ANTIBODY NON-REACTIVE (NON-REACTIVE)
== END 2017-08-04 07:50 | disposition home or self-care (01) ==
LOC: LAB.F 07:49
PROVIDERS: ATTEND Internal Medicine
DX: I71.4 Abdominal aortic aneurysm, without rupture (principal); N40.0 Benign prostatic hyperplasia without lower urinary tract symptoms; I12.9 Hypertensive chronic kidney disease with stage 1 through stage 4 chronic kidney disease, or unspecified chronic kidney disease; N18.3 Chronic kidney disease, stage 3 (moderate); K63.5 Polyp of colon; E11.9 Type 2 diabetes mellitus without complications; E78.5 Hyperlipidemia, unspecified; E66.9 Obesity, unspecified; R19.5 Other fecal abnormalities; Z00.00 Encounter for general adult medical examination without abnormal findings
CPT/HCPCS: 36415; 80048; 80061; 82043; 82570; 83036; 83721; 86803

== ENCOUNTER 2018-02-02 08:40 | Outpatient (CLI) | payer MEDICARE ==
[2018-02-02 15:39] LABS: HB2 TOTAL 16.2 g/dL; HEMOGLOBIN A1C 0.56 g/dL; HEMOGLOBIN A1C % 5.3 % (4.6-6.2)
== END 2018-02-02 08:41 | disposition home or self-care (01) ==
LOC: LAB.F 08:40
PROVIDERS: ATTEND Internal Medicine
DX: Z00.00 Encounter for general adult medical examination without abnormal findings (principal); I71.4 Abdominal aortic aneurysm, without rupture; N40.0 Benign prostatic hyperplasia without lower urinary tract symptoms; E11.22 Type 2 diabetes mellitus with diabetic chronic kidney disease; I12.9 Hypertensive chronic kidney disease with stage 1 through stage 4 chronic kidney disease, or unspecified chronic kidney disease; N18.3 Chronic kidney disease, stage 3 (moderate); K63.5 Polyp of colon; E78.5 Hyperlipidemia, unspecified; E66.9 Obesity, unspecified; R19.5 Other fecal abnormalities
CPT/HCPCS: 36415; 83036

== ENCOUNTER 2018-08-06 08:02 | Outpatient (CLI) | payer MEDICARE ==
[2018-08-06 10:54] LABS: BUN - BLOOD UREA NITROGEN 28 mg/dL (6-20); CALCIUM 9.4 mg/dL (8.5-10.3); CARBON DIOXIDE - CO2 22 mmol/L (21-32); CHLORIDE 110 mmol/L (101-111); CHOL/HDL RATIO 3.7 (<5.0); CHOLESTEROL 177 mg/dL; GFR - MDRD 74 (>89); GLUCOSE 112 mg/dL (70-100); HDL CHOLESTEROL 48 mg/dL; LDL CHOLESTEROL,CALCULATED 101 mg/dL; LDL/HDL RATIO 2.1 (<3.6); SODIUM 143 mmol/L (135-145); VLDL CHOLESTEROL 28 mg/dL
[2018-08-06 10:55] LABS: CREATININE,URINE 142.5 mg/dL; MICROALBUM/CREATININE RATIO,UR 9.8 ug/mg (<30.0); MICROALBUMIN,URINE 1.4 mg/dL (0-300.0)
[2018-08-06 11:07] LABS: HEMOGLOBIN A1C 0.6 g/dL; HEMOGLOBIN A1C % 5.6 % (4.6-6.2)
[2018-08-07 10:26] LABS: HEPATITIS C ANTIBODY NON-REACTIVE (NON-REACTIVE)
== END 2018-08-06 08:03 | disposition home or self-care (01) ==
LOC: LAB.F 08:02
PROVIDERS: ATTEND Internal Medicine
DX: Z00.00 Encounter for general adult medical examination without abnormal findings (principal); I71.4 Abdominal aortic aneurysm, without rupture; N40.0 Benign prostatic hyperplasia without lower urinary tract symptoms; K63.5 Polyp of colon; E11.9 Type 2 diabetes mellitus without complications; E78.5 Hyperlipidemia, unspecified; E66.9 Obesity, unspecified; R19.5 Other fecal abnormalities; I10 Essential (primary) hypertension; Z11.59 Encounter for screening for other viral diseases
CPT/HCPCS: 36415; 80048; 80061; 82043; 82570; 83036; 83721; 86803

== ENCOUNTER 2018-08-22 08:12 | Outpatient (CLI) | payer MEDICARE, BC ==
--- NOTE | 2018-08-22 11:23 | Ultrasound Report ---
Reason: AORTA Procedure Date: 08/22/2018 Accession Number: [id number] / [id number] Procedure: US - Retroperitoneal Limited CPT Code: FULL RESULT: EXAM: AORTIC/RETROPERITONEAL LIMITED ULTRASOUND EXAM DATE: 08/22/2018 09:02 AM. CLINICAL HISTORY: Abdominal aortic aneurysm. COMPARISON: RETROPERITONEAL LIMITED 07/28/2017 9:37 AM RETROPERITONEAL 02/25/2017 8:55 PM ABDOMEN/PELVIS W/O 02/24/2017 1:09 PM. TECHNIQUE: Real-time sonographic imaging of retroperitoneal vascular structures, including color-flow, Doppler flow and spectral analysis was performed by the dietetics teacher. Multiple outside industrial sales representative static images were saved for review. FINDINGS: Aorta: Abdominal aorta was adequately visualized. Calcified plaque is identified in the abdominal aorta. Limited visualization due to body habitus/overlying bowel gas. Aorta: Proxima: Sagittal AP 3.0 cm. Mid: Transverse 2.2 x 2.9 cm. Distal: Transverse 4.3 x 3.2 cm. Plaque visualized: Yes. Iliacs: Right Iliac: Transverse 2.4 x 1.9 cm. Left Iliac: Transverse 2.4 x 2.0 cm. Iliac Vessels: On the current study there appears to be aneurysmal dilatation of the common iliac arteries transversely partially visualized. Other: None. IMPRESSION: 1. Abdominal aortic aneurysm without significant change with a maximal size measuring up to 4.3 cm. 2. Aneurysmal dilatation of the iliac arteries based on transverse sonographic imaging noting that the iliac arteries are mildly prominent although did not appear significantly aneurysm on the CT from 02/24/2017. RADIA
== END 2018-08-22 08:13 | disposition home or self-care (01) ==
LOC: DI 08:12
PROVIDERS: ATTEND Internal Medicine
DX: I71.4 Abdominal aortic aneurysm, without rupture (principal); I72.3 Aneurysm of iliac artery
CPT/HCPCS: 76775

== ENCOUNTER 2019-02-04 09:02 | Outpatient (CLI) | payer MEDICARE, BC ==
[2019-02-04 18:11] LABS: HB2 TOTAL 15.4 g/dL; HEMOGLOBIN A1C 0.6 g/dL; HEMOGLOBIN A1C % 5.7 % (4.6-6.2)
[2019-02-04 18:31] LABS: CHOL/HDL RATIO 3.2 (<5.0); CHOLESTEROL 151 mg/dL; HDL CHOLESTEROL 47 mg/dL; LDL CHOLESTEROL,CALCULATED 87 mg/dL; LDL/HDL RATIO 1.9 (<3.6); VLDL CHOLESTEROL 17 mg/dL
== END 2019-02-04 09:03 | disposition home or self-care (01) ==
LOC: LAB.S 09:02
PROVIDERS: ATTEND Internal Medicine
DX: Z00.00 Encounter for general adult medical examination without abnormal findings (principal); I71.4 Abdominal aortic aneurysm, without rupture; N40.0 Benign prostatic hyperplasia without lower urinary tract symptoms; K63.5 Polyp of colon; E11.9 Type 2 diabetes mellitus without complications; E78.5 Hyperlipidemia, unspecified; E66.9 Obesity, unspecified; R19.5 Other fecal abnormalities; I10 Essential (primary) hypertension
CPT/HCPCS: 36415; 80061; 83036; 83721

== ENCOUNTER 2019-08-03 10:02 | Outpatient (CLI) | payer MEDICARE, BC ==
[2019-08-03 10:35] LABS: BUN - BLOOD UREA NITROGEN 20 mg/dL (6-20); CALCIUM 9.4 mg/dL (8.5-10.3); CARBON DIOXIDE - CO2 26 mmol/L (21-32); CHLORIDE 108 mmol/L (101-111); CHOL/HDL RATIO 3.3 (<5.0); CHOLESTEROL 149 mg/dL; CREATININE 1.1 mg/dL (0.6-1.2); GLUCOSE 125 mg/dL (70-100); HDL CHOLESTEROL 45 mg/dL; LDL CHOLESTEROL,CALCULATED 81 mg/dL; LDL/HDL RATIO 1.8 (<3.6); SODIUM 142 mmol/L (135-145); VLDL CHOLESTEROL 23 mg/dL
[2019-08-03 11:08] LABS: HB2 TOTAL 15.8 g/dL; HEMOGLOBIN A1C 0.6 g/dL; HEMOGLOBIN A1C % 5.6 % (4.6-6.2)
[2019-08-03 12:02] LABS: MICROALBUM/CREATININE RATIO,UR 15.5 ug/mg (<30.0)
== END 2019-08-03 10:03 | disposition home or self-care (01) ==
LOC: LAB 10:02
PROVIDERS: ATTEND Internal Medicine
DX: I71.4 Abdominal aortic aneurysm, without rupture (principal); N40.0 Benign prostatic hyperplasia without lower urinary tract symptoms; E11.9 Type 2 diabetes mellitus without complications; E66.9 Obesity, unspecified; I10 Essential (primary) hypertension; J06.9 Acute upper respiratory infection, unspecified; E78.5 Hyperlipidemia, unspecified
CPT/HCPCS: 36415; 80048; 80061; 82043; 82570; 83036; 83721

== ENCOUNTER 2019-09-09 08:47 | Outpatient (CLI) | payer MEDICARE, BC ==
--- NOTE | 2019-09-09 11:42 | Ultrasound Report ---
PROCEDURE: Retroperitoneal Limited INDICATIONS: AAA SCREENING TECHNIQUE: Real-time scanning was performed of the retroperitoneal organs, with image documentation. COMPARISON: None. FINDINGS: The abdominal aorta measures 36 mm short axis proximally, 29 mm short axis and its midportion, and 42 mm short axis distally. Right common iliac artery measures 18 mm short axis. Left common iliac arter y measures 19 mm short axis. IMPRESSION: 1. Mild aneurysmal dilatation of the distal abdominal aorta measuring 42 mm short axis. 2. Mild bilateral common iliac artery dilatation. Reviewed by: Jean Claude Charles MD on 09/09/2019 11:41 AM PDT Approved by: Jean Claude Charles MD on 09/09/2019 11:41 AM PDT Station ID: [id number]
== END 2019-09-09 08:48 | disposition home or self-care (01) ==
LOC: DI 08:47
PROVIDERS: ATTEND Internal Medicine
DX: I71.4 Abdominal aortic aneurysm, without rupture (principal); I72.3 Aneurysm of iliac artery; J43.2 Centrilobular emphysema; I25.10 Atherosclerotic heart disease of native coronary artery without angina pectoris; Z12.2 Encounter for screening for malignant neoplasm of respiratory organs; Z87.891 Personal history of nicotine dependence
CPT/HCPCS: 76775

== ENCOUNTER 2019-09-09 09:04 | Outpatient (CLI) | payer MEDICARE, BC ==
--- NOTE | 2019-09-09 09:58 | CT Report ---
PROCEDURE: Low Dose Lung Cancer Screen INDICATIONS: HISTORY TECHNIQUE: Noncontrast low-dose 5 mm thick sections acquired from the pulmonary apices to the posterior costophr enic angles. 7 mm thick coronal and sagittal MIP reformats were then acquired. For radiation dose r eduction, the following was used: automated exposure control, adjustment of mA and/or kV according t o patient size. COMPARISON: None. FINDINGS: Image quality: Excellent. Lungs and pleura: Mild centrilobular emphysema. No suspicious pulmonary nodules. No pleural fluid. Mediastinum: Heart size is normal. No pericardial effusion. Coronary artery calcifications. No med iastinal adenopathy by size criteria. Thoracic aorta and central pulmonary arteries are normal in si ze. Esophagus is normal in caliber. Great vessel calcifications. No hiatal hernia. Bones and chest wall: No suspicious bony lesions. No vertebral body compression fractures. No axil carlos eduardo or supraclavicular adenopathy by size criteria. The thyroid is normal in size. Abdomen: Visualized upper abdomen solid organs and bowel loops appear normal in the absence of contr ast. IMPRESSION: 1. LungRads category 1: Negative. No nodules and/or definitely benign nodules. 2. Annual low-dose noncontrast CT of the chest is recommended for lung cancer screening. 3. Clinically significant or potentially clinically significant findings (nonlung cancer): Centrilobu lar emphysema, coronary artery disease, ASCVD Reviewed by: Jm Floyd MD on 09/09/2019 9:56 AM PDT Approved by: Jm Floyd MD on 09/09/2019 9:56 AM PDT Station ID: [id number]
== END 2019-09-09 09:05 | disposition home or self-care (01) ==
LOC: DI 09:04
PROVIDERS: ATTEND Internal Medicine
DX: Z12.2 Encounter for screening for malignant neoplasm of respiratory organs (principal); J43.2 Centrilobular emphysema; I25.10 Atherosclerotic heart disease of native coronary artery without angina pectoris; Z87.891 Personal history of nicotine dependence
CPT/HCPCS: G0297 ×2

== ENCOUNTER 2020-02-07 09:24 | Outpatient (CLI) | payer MEDICARE, BC ==
[2020-02-07 19:58] LABS: HEMOGLOBIN A1c% 6.1 % (4.27-6.07)
== END 2020-02-07 09:25 | disposition home or self-care (01) ==
LOC: LAB.S 09:24
PROVIDERS: ATTEND Internal Medicine
DX: E11.9 Type 2 diabetes mellitus without complications (principal)
CPT/HCPCS: 36415; 83036

== ENCOUNTER 2020-08-10 08:29 | Outpatient (CLI) | payer MEDICARE, BC ==
[2020-08-10 15:31] LABS: BUN - BLOOD UREA NITROGEN 22 mg/dL (6-20); CALCIUM 9.5 mg/dL (8.5-10.3); CARBON DIOXIDE - CO2 23 mmol/L (21-32); CHLORIDE 109 mmol/L (101-111); CHOL/HDL RATIO 3.6 (<5.0); CHOLESTEROL 176 mg/dL; GFR - MDRD 73 (>89); GLUCOSE 121 mg/dL (70-100); HDL CHOLESTEROL 49 mg/dL; LDL CHOLESTEROL,CALCULATED 103 mg/dL; LDL/HDL RATIO 2.1 (<3.6); POTASSIUM 4.2 mmol/L (3.5-5.0); SODIUM 140 mmol/L (135-145); TRIGLYCERIDES 118 mg/dL; VLDL CHOLESTEROL 24 mg/dL
[2020-08-10 15:39] LABS: MICROALBUM/CREATININE RATIO,UR 37.9 ug/mg (<30.0); MICROALBUMIN,URINE 5.3 mg/dL (0-300.0)
[2020-08-10 20:13] LABS: ESTIMATED AVERAGE GLUCOSE 123 mg/dL (70-100); HEMOGLOBIN A1c% 5.9 % (4.27-6.07)
== END 2020-08-10 08:30 | disposition home or self-care (01) ==
LOC: LAB.S 08:29
PROVIDERS: ATTEND Internal Medicine
DX: I71.4 Abdominal aortic aneurysm, without rupture (principal); N40.0 Benign prostatic hyperplasia without lower urinary tract symptoms; E11.9 Type 2 diabetes mellitus without complications; Z87.891 Personal history of nicotine dependence; E78.5 Hyperlipidemia, unspecified; I10 Essential (primary) hypertension
CPT/HCPCS: 36415; 80048; 80061; 82043; 82570; 83036; 83721

== ENCOUNTER 2020-09-09 08:45 | Outpatient (CLI) | payer MEDICARE, BC ==
--- NOTE | 2020-09-20 08:58 | Ultrasound Report ---
PROCEDURE: Retroperitoneal Limited INDICATIONS: AAA TECHNIQUE: Real time scanning was performed of the aorta and iliac arteries, with image documentatio n. COMPARISON: 09/09/2019 FINDINGS: Aorta: Proximal aortic diameter measures 3.6 x 3.6 cm. Mid-aorta measures 3.0 x 2.7 cm. Distal aor tic diameter is 5.0 x 3.7 cm. Previous distal aortic measurement and a maximum diameter of 4.2 cm. Iliac arteries: Right common iliac artery measures 2.4 cm. Left common iliac artery measures 2.3 cm . IMPRESSION: Today's study suggests a significant interval increase in the size of an infrarenal abdominal aortic aneurysm, now measuring 5.0 cm maximum diameter. However, sometimes, aneurysm size may be overestimat ed. Suggest correlation with CT angiogram of the abdomen and pelvis. If the aneurysm is 5 cm or great er, or has significantly increased in size over the past 12 months, would recommend consultation with a vascular surgeon Reviewed by: Jm Floyd MD on 09/09/2020 5:16 PM CAYLA Approved by: Jm Floyd MD on 09/09/2020 5:16 PM CAYLA Station ID: [id number]
== END 2020-09-09 08:46 | disposition home or self-care (01) ==
LOC: DI 08:45
PROVIDERS: ATTEND Internal Medicine
DX: I71.4 Abdominal aortic aneurysm, without rupture (principal)

== ENCOUNTER 2020-09-09 08:47 | Outpatient (CLI) | payer MEDICARE, BC ==
--- NOTE | 2020-09-09 18:44 | CT Report ---
PROCEDURE: Low Dose Lung Cancer Screen INDICATIONS: HISTORY OF SMOKING TECHNIQUE: Noncontrast low-dose 5 mm thick sections acquired from the pulmonary apices to the posterior costophr enic angles. 7 mm thick coronal and sagittal MIP reformats were then acquired. For radiation dose r eduction, the following was used: automated exposure control, adjustment of mA and/or kV according t o patient size. COMPARISON: 09/09/2019. FINDINGS: Image quality: Excellent. Lungs and pleura: No pulmonary nodules. Clear lung lui. Mild centrilobular emphysema. Mediastinum: Heart size is normal. No pericardial effusion. Mild coronary artery calcifications. Gr eat vessel origin calcifications. No mediastinal adenopathy by size criteria. Thoracic aorta and ce ntral pulmonary arteries are normal in size. Esophagus is normal in caliber. No hiatal hernia. Bones and chest wall: No suspicious bony lesions. No vertebral body compression fractures. No axil carlos eduardo or supraclavicular adenopathy by size criteria. The thyroid is normal in size and there are no incidental findings. Abdomen: Visualized upper abdomen solid organs and bowel loops appear normal in the absence of contr ast. IMPRESSION: 1. LungRads category 1: Negative. No nodules and/or definitely benign nodules. 2. Annual low-dose noncontrast CT of the chest is recommended for lung cancer screening. 3. Clinically significant or potentially clinically significant findings (nonlung cancer): Centrilobu lar emphysema, coronary artery disease, ASCVD CLINICAL RECOMMENDATION STATEMENTS: In patients <35 years with an ITN detected on CT, MRI, or extrathyroidal ultrasound, the Committee re commends further evaluation with dedicated thyroid ultrasound if the nodule is ?1 cm and has no suspi cious imaging features, and if the patient has normal life expectancy. In patients ?35 years with an ITN detected on CT, MRI, or extrathyroidal ultrasound, the Committee re commends further evaluation with dedicated thyroid ultrasound if the nodule is ?1.5 cm and has no zeina picious imaging features, and if the patient has normal life expectancy. (ACR, 2014) Reviewed by: Jm Floyd MD on 09/09/2020 5:42 PM AKLARY Approved by: Jm Floyd MD on 09/09/2020 5:42 PM AKDT Station ID: [id number]
== END 2020-09-09 08:48 | disposition home or self-care (01) ==
LOC: DI 08:47
PROVIDERS: ATTEND Internal Medicine
DX: Z12.2 Encounter for screening for malignant neoplasm of respiratory organs (principal); Z87.891 Personal history of nicotine dependence; J43.2 Centrilobular emphysema; I25.10 Atherosclerotic heart disease of native coronary artery without angina pectoris; I71.4 Abdominal aortic aneurysm, without rupture

== ENCOUNTER 2020-09-25 09:32 | Outpatient (CLI) | payer MEDICARE, BC ==
[2020-09-25 16:48] LABS: CREATININE 1.1 mg/dL (0.6-1.2)
== END 2020-09-25 09:33 | disposition home or self-care (01) ==
LOC: LAB.S 09:32
PROVIDERS: ATTEND Internal Medicine
DX: I10 Essential (primary) hypertension (principal)
CPT/HCPCS: 36415; 82565

== ENCOUNTER 2020-10-03 11:36 | Outpatient (CLI) | payer MEDICARE, BC ==
[2020-10-03] MEDS ORDERED: IOVERSOL 320 100 ML VIAL IVP ONE ×2 (11:54→17:04)
--- NOTE | 2020-10-03 15:59 | CT Report ---
PROCEDURE: ANGIO ABDOMEN/PELVIS W INDICATIONS: ANEURYSM OF AORTA CONTRAST: IV CONTRAST: Optiray 320 ml: 100 PO CONTRAST: Optiray 320 ml50 TECHNIQUE: After the administration of intravenous contrast, 2 and 5 mm sections acquired from the diaphragm to the iliac crests. 3-dimensional maximum intensity projection (MIP) coronal and sagittal reformats, a nd/or 3-dimensional volume rendering reformatting was then performed. For radiation dose reduction, the following was used: automated exposure control, adjustment of mA and/or kV according to patient size. COMPARISON: CT abdomen/pelvis 02/24/2017 reviewed. FINDINGS: Image quality: Excellent. Extravascular tissues: Lung bases are clear. Heart size is normal. Liver and spleen are normal in size and enhancement. Gallbladder contains several small densely calcified gallstones layering depen dently, without evidence of acute cholecystitis or biliary obstruction. Biliary system is non dilate d. Pancreas enhances normally. No adrenal nodules. Kidneys are normal in size and enhancement, wit hout hydronephrosis. There is a large posterior exophytic simple appearing right renal cortical cyst that measures up to 5.5 x 7.1 cm. Smaller left peripelvic cyst is present, and no solid mass lesion i s suspected. Non-opacified bowel loops demonstrate normal wall thickness and caliber. No free fluid or air. No retroperitoneal or mesenteric adenopathy. There is a small noninflamed periumbilical vent ral hernia containing omental fat. No suspicious bony abnormalities. No vertebral body compression fractures. Abdominal aorta: The mid abdominal aorta, infrarenal, is enlarged measuring up to 3.1 x 5.2 cm in ma ximal axial dimension over the short craniocaudad length. No dissection is associated. There is a nor mal bifurcation of the aorta and the common and external iliac arteries appear normal as do the inter nal iliac arteries bilaterally. Mesenteric arteries: No aneurysm or dissection found. Renal arteries: No aneurysm or dissection found. IMPRESSION: 1. There is a middle third abdominal aortic aneurysm located below the level of the renal arteries bi laterally, measuring up to 3.1 x 5.2 cm in maximal axial and transverse dimension. This fusiform aneu rysm is not associated with dissection and is short in craniocaudad length. No additional vascular ab normalities found. 2. Incidental note is made of 3 or 4 small densely calcified gallstones within the gallbladder lumen layering dependently. These small stones could easily pass into the cystic duct or common bile duct. No evidence of acute cholecystitis or biliary obstruction is currently present, however. 3. There is an incidental note of a relatively large right posterior renal cortical cyst that appears simple, measuring up to 5.5 x 7.1 cm, requiring no follow-up. Reviewed by: Ari Andrade MD on 10/03/2020 3:58 PM PDT Approved by: Ari Andrade MD on 10/03/2020 3:58 PM PDT Station ID: [id number]
== END 2020-10-03 11:37 | disposition home or self-care (01) ==
LOC: DI 11:36
PROVIDERS: ATTEND Internal Medicine
DX: I71.4 Abdominal aortic aneurysm, without rupture (principal); I10 Essential (primary) hypertension
CPT/HCPCS: 74174; Q9967

== ENCOUNTER 2020-11-05 11:30 | Emergency (ER) | payer MEDICARE, BC ==
[2020-11-05 11:54] VITALS: BP 160/91
[2020-11-05] MEDS ORDERED: KETOROLAC 30 MG/ML VIAL IM STA (12:22)
[2020-11-05] MEDS ORDERED: HYDROmorphone 1 MG/ML CARPUJECT IM STA (12:22)
--- NOTE | 2020-11-05 12:24 | ED Physician Documentation ---
PD HPI BACK PAIN - Stated complaint Stated Complaint: LT HIP PX - Chief complaint Chief Complaint: Back Pain - History obtained from History obtained from: Patient - Additional information Additional information: 70-year-old gentleman with chronic left-sided low back pain. He also has a AAA and diabetes. His back pain has been much worse over the last 2 weeks. 2 weeks ago he took a long car trip and then was sitting at a picnic table in an awkward position with his hips canted and tilted for about 3 hours. That night started to feel severe left-sided low back pain which is much worse with position changes, sitting or getting up. Is better with standing. He has not had incontinence with it. No numbness or tingling of the legs or saddle area. No fevers. Review of Systems Constitutional: denies: Fever, Chills Nose: reports: Reviewed and negative Throat: reports: Reviewed and negative Cardiac: reports: Reviewed and negative Respiratory: reports: Reviewed and negative PD PAST MEDICAL HISTORY - Past Medical History Cardiovascular: Hypertension, High cholesterol, Other Respiratory: None Endocrine/Autoimmune: Type 2 diabetes GI: None : Benign prostate hypertrophy, Renal insuffiency HEENT: Chronic vision loss Psych: None Musculoskeletal: Chronic back pain Derm: None - Present Medications Home Medications: Ambulatory Orders Medication Instructions Recorded Confirmed Pravastatin [Pravachol] 40 mg PO QPM 02/24/17 07/25/17 Blood Sugar Diagnostic [Glucometer 1 bottle MC TID #1 bottle 02/28/17 07/25/17 Strips] Blood-Glucose Meter [Glucometer] 1 each MC DAILY #1 each 02/28/17 07/25/17 Lancets 1 bottle MC TID #1 each 02/28/17 07/25/17 Tamsulosin [Flomax] 0.4 mg PO DAILY #30 capsule 02/28/17 07/25/17 Acetaminophen [Tylenol] 650 mg PO Q6H PRN 03/26/17 07/25/17 Aspirin 81 mg PO QPM 03/26/17 07/25/17 Melatonin 3 mg PO QPM 03/26/17 07/25/17 Metformin HCl 1,000 mg PO BIDWM 07/25/17 07/25/17 Ibuprofen [Motrin] 800 mg PO Q8H PRN #30 tablet 11/05/20 Lidocaine Patch 5% [Lidoderm Patch] 1 patch TOP DAILY PRN #10 patch 11/05/20 Physcal Therapy 1 unit TD ONCE #1 11/05/20 oxyCODONE [Roxicodone] 1 - 2 tab PO Q4H PRN #30 tablet 11/05/20 - Allergies Allergies/Adverse Reactions: Allergies Allergy/AdvReac Type Severity Reaction Status Date / Time No Known Drug Allergies Allergy Verified 11/05/20 11:54 - Social History Does the pt smoke?: No Smoking Status: Former smoker - POLST Patient has POLST: No PD ED PE NORMAL - Vitals Vital signs reviewed: Yes - General General: Alert and oriented X 3, No acute distress - HEENT HEENT: PERRL, EOMI - Cardiac Cardiac: RRR, No murmur - Respiratory Respiratory: No respiratory distress, Clear bilaterally - Abdomen Abdomen: Non tender - Back Back: No CVA TTP, No spinal TTP - Derm Derm: Normal color, Warm and dry - Neuro Neuro: Alert and oriented X 3, Normal speech Results - Vitals Vitals: Vital Signs - 24 hr 11/05/20 11:48 Temperature 36.8 C Heart Rate 99 Respiratory 15 Rate Blood Pressure 160/91 H O2 Saturation 97 Oxygen O2 Source Room air PD MEDICAL DECISION MAKING - ED course ED course: He has a known AAA, given the description of the pain and the location and significant association with movement, I do not think this is relevant. Spinal epidural abscess is considered given his diabetic nature, but no fever and would be very slow progression and associated with an inciting incidents of sitting funny for 3 hours. Departure - Departure Disposition: 01 Home, Self Care Clinical Impression: Piriformis syndrome of left side Back pain Qualifiers: Back pain location: low back pain Chronicity: acute Back pain laterality: left Sciatica presence: with sciatica Sciatica laterality: sciatica of left side Qualified Code(s): M54.42 - Lumbago with sciatica, left side Condition: Good Record reviewed to determine appropriate education?: Yes Instructions: ED Exercises Lumbar Muscles, ED Spasm Back No Trauma Prescriptions: Lidocaine Patch 5% [Lidoderm Patch] 1 patch TOP DAILY PRN #10 patch PRN Reason: pain Ibuprofen [Motrin] 800 mg PO Q8H PRN #30 tablet PRN Reason: PAIN &/OR FEVER Physcal Therapy 1 unit TD ONCE #1 oxyCODONE [Roxicodone] 1 - 2 tab PO Q4H PRN #30 tablet PRN Reason: Pain Comments: Call your doctor to arrange a follow-up appointment, make the next available appointment. In the interim, return anytime if worse or if new symptoms develop . I am prescribing a short course of narcotic pain medication for you. These are potentially dangerous and addictive medications that should be used carefully. These medications may constipate you. Take an pebl-pif-hilymca stool softener (docusate) twice daily with plenty of water while taking these medications. If you go 24 hours without a bowel movement, take rzjb-pzw-hyjjutq miralax, per package instructions. Do not drink or drive while taking these medications. If you received narcotic or sedating medications while in the emergency department, do not drive for 24 hours. Store this medication in a safe, secure place and out of reach of children. It is a violation of federal law to give or sell this medication to another person or to use in a manner other than prescribed. The ED will not refill narcotic prescriptions, including prescriptions lost or stolen. To dispose of unwanted medications: 1. [facility] [address] in [place] has a medication drop box. They accept prescription medications (in pill form) Friday through Friday 9:00 a.m. to 5:00 p.m. 2. The [facility] [employer] accepts prescription medications (in pill form only) for disposal year round. Call for more information. 3. Contact the [facility] for the next [facility] sponsored prescription drug collection event. , [phone], or [phone]; Note that many narcotic pain relievers also contain Tylenol/acetaminophen. Please ensure that your total dose of acetaminophen from all sources does not exceed 3 g (3000 mg) per day.
== END 2020-11-05 13:45 | disposition home or self-care (01) ==
LOC: ED 11:30
DX: M54.42 Lumbago with sciatica, left side (principal); G89.29 Other chronic pain; I71.4 Abdominal aortic aneurysm, without rupture; E11.9 Type 2 diabetes mellitus without complications; I10 Essential (primary) hypertension; E78.00 Pure hypercholesterolemia, unspecified; N40.0 Benign prostatic hyperplasia without lower urinary tract symptoms; N28.9 Disorder of kidney and ureter, unspecified; H54.7 Unspecified visual loss; Z79.82 Long term (current) use of aspirin; Z79.84 Long term (current) use of oral hypoglycemic drugs; Z79.899 Other long term (current) drug therapy; Z87.891 Personal history of nicotine dependence
CPT/HCPCS: 96372; 99283; 99284; J1170

== ENCOUNTER 2021-02-09 11:24 | Outpatient (CLI) | payer MEDICARE, BC ==
[2021-02-09 20:10] LABS: ESTIMATED AVERAGE GLUCOSE 137 mg/dL (70-100); HEMOGLOBIN A1c% 6.4 % (4.27-6.07)
== END 2021-02-09 11:25 | disposition home or self-care (01) ==
LOC: LAB.S 11:24
PROVIDERS: ATTEND Internal Medicine
DX: E11.9 Type 2 diabetes mellitus without complications (principal)
CPT/HCPCS: 36415; 83036

== ENCOUNTER 2021-08-14 09:22 | Outpatient (CLI) | payer MEDICARE, BC ==
[2021-08-14 14:49] LABS: BUN - BLOOD UREA NITROGEN 32 mg/dL (6-20); CALCIUM 9.4 mg/dL (8.5-10.3); CARBON DIOXIDE - CO2 20 mmol/L (21-32); CHLORIDE 111 mmol/L (101-111); CHOL/HDL RATIO 2.8 (<5.0); CHOLESTEROL 135 mg/dL; CREATININE 1.6 mg/dL (0.6-1.2); GFR - MDRD 43 (>89); GLUCOSE 160 mg/dL (70-100); HDL CHOLESTEROL 49 mg/dL; LDL CHOLESTEROL,CALCULATED 68 mg/dL; LDL/HDL RATIO 1.4 (<3.6); POTASSIUM 4.5 mmol/L (3.5-5.0); SODIUM 141 mmol/L (135-145); TRIGLYCERIDES 92 mg/dL; VLDL CHOLESTEROL 18 mg/dL
[2021-08-14 14:52] LABS: CREATININE,URINE 150.7 mg/dL; MICROALBUM/CREATININE RATIO,UR 11.3 ug/mg (<30.0); MICROALBUMIN,URINE 1.7 mg/dL (0-300.0)
[2021-08-14 21:17] LABS: ESTIMATED AVERAGE GLUCOSE 154 mg/dL (70-100)
== END 2021-08-14 09:23 | disposition home or self-care (01) ==
LOC: LAB.S 09:22
PROVIDERS: ATTEND Internal Medicine
DX: E11.9 Type 2 diabetes mellitus without complications (principal); E78.5 Hyperlipidemia, unspecified
CPT/HCPCS: 36415; 80048; 80061; 82043; 82570; 83036; 83721

== ENCOUNTER 2021-08-30 10:38 | Outpatient (CLI) | payer MEDICARE, BC ==
--- NOTE | 2021-08-30 16:17 | CT Report ---
PROCEDURE: Low Dose Lung Cancer Screen INDICATIONS: HIST OF SMOKING TECHNIQUE: Noncontrast low-dose images were acquired from the pulmonary apices to the posterior costophrenic ang les. Multiplanar MIP reformats were then acquired. For radiation dose reduction, the following was used: automated exposure control, adjustment of mA and/or kV according to patient size. COMPARISON: CT chest 09/09/2020 FINDINGS: Image quality: Excellent. Lungs and pleura: No consolidations or effusions. No nodules are identified. Mediastinum: Heart size is normal. No pericardial effusion. No mediastinal adenopathy by size crit eria. Thoracic aorta and central pulmonary arteries are normal in size. Esophagus is normal in arron nehemias. No hiatal hernia. Bones and chest wall: No suspicious bony lesions. No vertebral body compression fractures. No axil carlos eduardo or supraclavicular adenopathy by size criteria. The thyroid is normal in size and there are no incidental findings. Abdomen: Visualized upper abdomen solid organs and bowel loops appear normal in the absence of contr ast. IMPRESSION: Lungs are clear. Stable interval exam. Lung rads category 1. Return to annual CT screening. CLINICAL RECOMMENDATION STATEMENTS: In patients <35 years with an ITN detected on CT, MRI, or extrathyroidal ultrasound, the Committee re commends further evaluation with dedicated thyroid ultrasound if the nodule is "e1 cm and has no susp icious imaging features, and if the patient has normal life expectancy. In patients "e35 years with an ITN detected on CT, MRI, or extrathyroidal ultrasound, the Committee r ecommends further evaluation with dedicated thyroid ultrasound if the nodule is "e1.5 cm and has no s uspicious imaging features, and if the patient has normal life expectancy. (ACR, 2014) Reviewed by: Marine Smalls MD on 08/30/2021 4:15 PM PDT Approved by: Marine Smalls MD on 08/30/2021 4:15 PM PDT Station ID: [id number]
== END 2021-08-30 10:39 | disposition home or self-care (01) ==
LOC: DI 10:38
PROVIDERS: ATTEND Internal Medicine
DX: Z12.2 Encounter for screening for malignant neoplasm of respiratory organs (principal); Z87.891 Personal history of nicotine dependence

== ENCOUNTER 2022-02-15 08:53 | Outpatient (CLI) | payer MEDICARE, BC ==
[2022-02-15 15:25] LABS: CALCIUM 9.5 mg/dL (8.5-10.3); CREATININE 1.5 mg/dL (0.6-1.2); POTASSIUM 4.4 mmol/L (3.5-5.0)
[2022-02-15 21:00] LABS: ESTIMATED AVERAGE GLUCOSE 189 mg/dL (70-100); HEMOGLOBIN A1c% 8.2 % (4.27-6.07)
== END 2022-02-15 08:54 | disposition home or self-care (01) ==
LOC: LAB.S 08:53
PROVIDERS: ATTEND Internal Medicine
DX: E11.9 Type 2 diabetes mellitus without complications (principal)
CPT/HCPCS: 36415; 80048; 83036

== ENCOUNTER 2022-05-10 13:10 | Outpatient (CLI) | payer MEDICARE, BC ==
[2022-05-10 20:05] LABS: CREATININE,URINE 104.1 mg/dL; MICROALBUM/CREATININE RATIO,UR 38.4 ug/mg (<30.0)
[2022-05-10 20:06] LABS: CALCIUM 9.6 mg/dL (8.5-10.3); CREATININE 1.4 mg/dL (0.6-1.2); POTASSIUM 4.9 mmol/L (3.5-5.0)
[2022-05-10 22:10] LABS: ESTIMATED AVERAGE GLUCOSE 174 mg/dL (70-100); HEMOGLOBIN A1c% 7.7 % (4.27-6.07)
== END 2022-05-10 13:11 | disposition home or self-care (01) ==
LOC: LAB.S 13:10
PROVIDERS: ATTEND Internal Medicine
DX: E11.22 Type 2 diabetes mellitus with diabetic chronic kidney disease (principal); N18.9 Chronic kidney disease, unspecified
CPT/HCPCS: 36415; 80048; 82043; 82570; 83036

== ENCOUNTER 2022-08-12 09:36 | Outpatient (CLI) | payer MEDICARE, BC ==
[2022-08-12 15:20] LABS: BUN - BLOOD UREA NITROGEN 35 mg/dL (6-20); CALCIUM 9.1 mg/dL (8.5-10.3); CARBON DIOXIDE - CO2 24 mmol/L (21-32); CHLORIDE 115 mmol/L (101-111); CHOL/HDL RATIO 3.3 (<5.0); CHOLESTEROL 137 mg/dL; CREATININE 1.5 mg/dL (0.6-1.2); CREATININE,URINE 81.4 mg/dL; GFR - MDRD 46 (>89); GLUCOSE 142 mg/dL (70-100); HDL CHOLESTEROL 41 mg/dL; LDL CHOLESTEROL,CALCULATED 63 mg/dL; LDL/HDL RATIO 1.5 (<3.6); MICROALBUM/CREATININE RATIO,UR 14.7 ug/mg (<30.0); MICROALBUMIN,URINE 1.2 mg/dL (0-300.0); POTASSIUM 4.8 mmol/L (3.5-5.0); SODIUM 142 mmol/L (135-145); TRIGLYCERIDES 166 mg/dL; VLDL CHOLESTEROL 33 mg/dL
[2022-08-12 20:29] LABS: ESTIMATED AVERAGE GLUCOSE 166 mg/dL (70-100); HEMOGLOBIN A1c% 7.4 % (4.27-6.07)
== END 2022-08-12 09:37 | disposition home or self-care (01) ==
LOC: LAB.S 09:36
PROVIDERS: ATTEND Internal Medicine
DX: I10 Essential (primary) hypertension (principal); N40.0 Benign prostatic hyperplasia without lower urinary tract symptoms; E11.9 Type 2 diabetes mellitus without complications; E78.5 Hyperlipidemia, unspecified
CPT/HCPCS: 36415; 80048; 80061; 82043; 82570; 83036; 83721

== ENCOUNTER 2022-08-24 10:38 | Outpatient (CLI) | payer MEDICARE, BC ==
--- NOTE | 2022-08-24 15:41 | CT Report ---
PROCEDURE: Low Dose Lung Cancer Screen INDICATIONS: FORMER SMOKER TECHNIQUE: A CT scan of the chest was performed. Intravenous contrast media was not administered. Images were re corded and evaluated at appropriate window settings. Reformats: axial MIP of the chest, coronal and s agittal. For radiation dose reduction, the following was used: automated exposure control, adjustment of mA and/or kV according to patient size. COMPARISON: None. FINDINGS: Image quality: Excellent. Prior cancer history: Unknown Lungs and pleura: No pleural effusions. No pneumothorax. No suspicious pulmonary nodules which requi re follow up. Mediastinum: Heart size is normal. No pericardial effusion. No large vessel abnormality. No mediastin al adenopathy by size criteria. Chest wall and lower neck: Thyroid is unremarkable. No axillary or supraclavicular adenopathy by size . Bones: No aggressive osseous abnormality. Upper Abdomen: Partially imaged right renal probable cyst and aortic stent IMPRESSION: Unremarkable low-dose screening study. No nodules. Lung RAD: 1 - Negative. Recommendation: Annual screening Reviewed by: Fred Olvera MD on 08/24/2022 2:40 PM AKDT Approved by: Fred Olvera MD on 08/24/2022 2:40 PM AKDT Station ID: [id number]
== END 2022-08-24 10:39 | disposition home or self-care (01) ==
LOC: DI 10:38
PROVIDERS: ATTEND Internal Medicine
DX: Z12.2 Encounter for screening for malignant neoplasm of respiratory organs (principal); Z87.891 Personal history of nicotine dependence

== ENCOUNTER 2023-02-14 10:01 | Outpatient (CLI) | payer MEDICARE, BC ==
[2023-02-14 18:16] LABS: ESTIMATED AVERAGE GLUCOSE 226 mg/dL (70-100); HEMOGLOBIN A1c% 9.5 % (4.27-6.07)
== END 2023-02-14 10:02 | disposition home or self-care (01) ==
LOC: LAB.S 10:01
PROVIDERS: ATTEND Internal Medicine
DX: E11.9 Type 2 diabetes mellitus without complications (principal)
CPT/HCPCS: 36415; 83036

== ENCOUNTER 2023-05-27 09:46 | Outpatient (CLI) | payer MEDICARE, BC ==
[2023-05-27 16:28] LABS: ESTIMATED AVERAGE GLUCOSE 214 mg/dL (70-100); HEMOGLOBIN A1c% 9.1 % (4.27-6.07)
[2023-05-27 17:08] LABS: CALCIUM 9.7 mg/dL (8.5-10.3); CREATININE 1.4 mg/dL (0.6-1.3); POTASSIUM 4.5 mmol/L (3.5-4.5)
== END 2023-05-27 09:47 | disposition home or self-care (01) ==
LOC: LAB.S 09:46
PROVIDERS: ATTEND Internal Medicine
DX: E11.22 Type 2 diabetes mellitus with diabetic chronic kidney disease (principal); N18.9 Chronic kidney disease, unspecified
CPT/HCPCS: 36415; 80048; 83036

== ENCOUNTER 2023-08-18 09:53 | Outpatient (CLI) | payer MEDICARE, BC ==
[2023-08-18 15:41] LABS: BUN - BLOOD UREA NITROGEN 29 mg/dL (6-20); CALCIUM 9.8 mg/dL (8.5-10.3); CARBON DIOXIDE - CO2 22 mmol/L (21-32); CHLORIDE 110 mmol/L (101-111); CHOLESTEROL 140 mg/dL; CREATININE 1.4 mg/dL (0.6-1.3); GFR - MDRD 49 (>89); GLUCOSE 165 mg/dL (74-104); HDL CHOLESTEROL 46 mg/dL; LDL CHOLESTEROL,CALCULATED 59 mg/dL; LDL/HDL RATIO 1.3 (<3.6); POTASSIUM 4.5 mmol/L (3.5-4.5); SODIUM 140 mmol/L (135-145); TRIGLYCERIDES 175 mg/dL (48-352); VLDL CHOLESTEROL 35 mg/dL
[2023-08-18 15:49] LABS: CREATININE,URINE 76.4 mg/dL; MICROALBUMIN,URINE 1.3 mg/dL
[2023-08-18 19:36] LABS: ESTIMATED AVERAGE GLUCOSE 171 mg/dL (70-100); HEMOGLOBIN A1c% 7.6 % (4.27-6.07)
== END 2023-08-18 09:54 | disposition home or self-care (01) ==
LOC: LAB.S 09:53
PROVIDERS: ATTEND Internal Medicine
DX: I12.9 Hypertensive chronic kidney disease with stage 1 through stage 4 chronic kidney disease, or unspecified chronic kidney disease (principal); E11.22 Type 2 diabetes mellitus with diabetic chronic kidney disease; N18.9 Chronic kidney disease, unspecified; E78.5 Hyperlipidemia, unspecified
CPT/HCPCS: 36415; 80048; 80061; 82043; 82570; 83036; 83721

== ENCOUNTER 2023-09-02 11:58 | Outpatient (CLI) | payer MEDICARE, BC ==
--- NOTE | 2023-09-02 14:04 | CT Report ---
PROCEDURE: Lung Cancer Screen INDICATIONS: HIST OF SMOKING TECHNIQUE: A CT scan of the chest was performed. Intravenous contrast media was not administered. Images were re corded and evaluated at appropriate window settings. Reformats: axial MIP of the chest, coronal and s agittal. For radiation dose reduction, the following was used: automated exposure control, adjustment of mA and/or kV according to patient size. COMPARISON: 08/24/2022. FINDINGS: Image quality: Excellent. Lungs and pleura: No pleural effusions. No pneumothorax. No suspicious pulmonary nodules which requi re follow up. Mild linear atelectasis versus scarring at the lung bases. Mediastinum: Heart size is normal. Moderate coronary artery calcifications. No pericardial effusion. No large vessel abnormality. Atherosclerotic vascular calcifications. No mediastinal adenopathy by si ze criteria. Chest wall and lower neck: Thyroid is unremarkable. No axillary or supraclavicular adenopathy by size . Bones: No aggressive osseous abnormality. Degenerative changes of the spine. Upper Abdomen: Gallstones. Simple appearing right renal partially exophytic cyst. IMPRESSION: No suspicious pulmonary nodules. Lung RAD: 1 - Negative. Recommendation: Continue annual screening in 12 Months with LDCT Reviewed by: Anthony Bangura MD on 09/02/2023 2:03 PM PDT Approved by: Anthony Bangura MD on 09/02/2023 2:03 PM PDT Station ID: [id number]
== END 2023-09-02 11:59 | disposition home or self-care (01) ==
LOC: DI 11:58
PROVIDERS: ATTEND Internal Medicine
DX: Z12.2 Encounter for screening for malignant neoplasm of respiratory organs (principal); Z87.891 Personal history of nicotine dependence